=== PATIENT | male | born 1935 | race Caucasian/White ===

== ENCOUNTER 2017-01-31 07:09 | Day surgery (SDC) | payer MEDICARE, MEDICAID ==
[~2017-01-31 07:09] MED LIST: Lactated Ringers 1,000 ML IV SCH; Lidocaine 1% 4 ML ONE; Lidocaine 1%/Sod Bicarbonate in NS 8.4% 1 ML Syringe PRN; Propofol 200 MG/20 ML SDV ONE; Sodium Chloride 0.9% 10 ML Syringe FLUSH PRN; fentaNYL 100 MCG/2 ML SDV ONE
--- NOTE | 2017-01-31 07:39 | PCM.PREANE ---
Preanesthetic Assessment - Anesthesia/Transfusion/Family Hx Anesthesia History: Prior Anesthesia Without Reaction Family History of Anesthesia Reaction: No - Review of Systems General: No Symptoms Pulmonary: No Symptoms Cardiovascular: No Symptoms Gastrointestinal: No Symptoms Neurological: No Symptoms Other: Reports: None - Physical Assessment NPO Status Date: 01/30/17 NPO Status Time: 21:30 Pulse: 60 O2 Sat by Pulse Oximetry: 94 Respiratory Rate: 18 Blood Pressure: 137/54 Temperature: 36.6 C Weight: 102 kg ASA Class: 3 Mental Status: Alert & Oriented x3 Dentition: Reports: Dentures (upper and lower) Thyro-Mental Finger Breadths: 2 Mouth Opening Finger Breadths: 3 ROM/Head Extension: Full Lungs: Clear to Auscultation, Normal Respiratory Effort Cardiovascular: Regular Rate, Regular Rhythm - Imaging/EKG Impressions: SR on 07/2015 - Allergies Allergies/Adverse Reactions: Allergies Allergy/AdvReac Type Severity Reaction Status Date / Time hayfever Allergy allergic Uncoded 01/30/17 10:48 rhinitis - Acknowledgements Anesthesia Type Planned: MAC Pt an Appropriate Candidate for the Planned Anesthesia: Yes Alternatives and Risks of Anesthesia Discussed w Pt/Guardian: Yes Pt/Guardian Understands and Agrees with Anesthesia Plan: Yes PreAnesthesia Questionnaire HEENT History: Reports: Hard of Hearing, Other (See Below) Other HEENT History: dentures, glasses Cardiovascular History: Reports: Hypertension Respiratory History: Reports: Other (See Below) Other Respiratory History: lung resection of left lower lobe Gastrointestinal History: Reports: GERD, Other (See Below) Other Gastrointestinal History: mcmillan's, lily fundiplication, perforated ulcer Genitourinary History: Reports: None CASE COORDINATOR History: Reports: None Musculoskeletal History: Reports: Other (See Below) Other Musculoskeletal History: R hand 2nd finger ampuation, L knee ligament tear and repair Neurological History: Reports: None Psychiatric History: Reports: None Endocrine/Metabolic History: Reports: None Hematologic History: Reports: None Immunologic History: Reports: None Oncologic (Cancer) History: Reports: Lung Dermatologic History: Reports: None - Past Surgical History Head Surgeries/Procedures: Reports: None HEENT Surgical History: Reports: Tonsillectomy GI Surgical History: Reports: Colonoscopy, EGD, Lily Fundoplication Female Surgical History: Reports: None Neurological Surgical History: Reports: Other (See Below) Other Neurological Surgeries/Procedures: crainiotomy for removal of blood clot behind eye Dermatological Surgical History: Reports: None - SUBSTANCE USE Smoking Status *Q: Former Smoker Recreational Drug Use History: No - HOME MEDS Home Medications: Home Meds Aspirin 81 mg PO DAILY 01/30/17 [History] Calcium Carbonate [Tums] 500 mg PO BEDTIME 01/30/17 [History] Cyanocobalamin (Vitamin B-12) [Vitamin B-12] 1,000 mcg PO DAILY 01/30/17 [ History] Dutasteride [Avodart] 0.5 mg PO DAILY 01/30/17 [History] Esomeprazole Magnesium [Nexium] 40 mg PO BID 01/30/17 [History] Famotidine [Take Home: Famotidine 20 MG, 3 Tab Pack] 40 mg PO BEDTIME 01/30/17 [ History] Fluticasone Propionate [Flonase] 1 puff INH BID 01/30/17 [History] Magnesium Hydroxide [Milk of Magnesia] 30 ml PO DAILY PRN 01/30/17 [History] Metoclopramide HCl 5 mg PO DAILY 01/30/17 [History] Metoprolol Succinate 12.5 mg PO BID 01/30/17 [History] Salmeterol Xinafoate [Serevent Diskus] 1 puff INH BID 01/30/17 [History] Tamsulosin [Flomax] 0.4 mg PO DAILY 01/30/17 [History] levETIRAcetam [Levetiracetam] 1,000 mg PO DAILY 01/30/17 [History] - CURRENT (IN HOUSE) MEDS Current Meds: Current Medications Lactated Ringer's (Ringers, Lactated) 1,000 mls @ 125 mls/hr IV ASDIRECTED MALENA Stop: 01/31/17 23:00 Lidocaine/Sodium Bicarbonate (Buffered Lidocaine 1% In Ns 8.4%) 0.25 ml .XX ONETIME PRN PRN Reason: Prior to IV Start Stop: 01/31/17 18:00 Sodium Chloride (Saline Flush) 10 ml FLUSH ASDIRECTED PRN PRN Reason: Keep Vein Open Stop: 01/31/17 18:00 Discontinued Medications Fentanyl (Sublimaze) Confirm Administered Dose 100 mcg .ROUTE .STK-MED ONE Stop: 01/31/17 07:05 Lidocaine HCl (Xylocaine-Mpf 1%) Confirm Administered Dose 4 mls @ as directed .ROUTE .STK-MED ONE Stop: 01/31/17 07:05 Propofol (Diprivan 20 Ml) Confirm Administered Dose 200 mg .ROUTE .STK-MED ONE Stop: 01/31/17 07:05 Propofol (Diprivan 20 Ml) Confirm Administered Dose 200 mg .ROUTE .STK-MED ONE Stop: 01/31/17 07:06
--- NOTE | 2017-01-31 08:30 | PCM.OPNOTE ---
- General Post-Op/Procedure Note Date of Surgery/Procedure: 01/31/17 Operative Procedure(s): EGD with bx Pre Op Diagnosis: GERD hx of barretts Post-Op Diagnosis: Same Anesthesia Technique: MAC Primary Surgeon: Luis Miguel Sebastian EBL in mLs: 0 Complications: None Condition: Good
--- NOTE | 2017-01-31 08:32 | PCM48HPAN ---
Post Anesthesia Note - EVALUATION WITHIN 48HRS OF ANESTHETIC Vital Signs in Normal Range: Yes Patient Participated in Evaluation: Yes Respiratory Function Stable: Yes Airway Patent: Yes Cardiovascular Function Stable: Yes Hydration Status Stable: Yes Pain Control Satisfactory: Yes Nausea and Vomiting Control Satisfactory: Yes Mental Status Recovered: Yes
[2017-01-31 09:50] VITALS: BP 121/66
--- NOTE | 2017-01-31 12:00 | OR ---
DATE OF OPERATION: 01/31/2017 SURGEON: Luis Miguel Sebastian MD PREOPERATIVE DIAGNOSIS: History of Rabago's gastroesophageal reflux disease, status post Joanne fundoplication. POSTOPERATIVE DIAGNOSIS: History of Rabago's gastroesophageal reflux disease, status post Joanne fundoplication. OPERATION PERFORMED: EGD with biopsy. ANESTHESIA: Done under IV sedation. FINDINGS: Presence of a Joanne, it seems to have slipped slightly and is quite patulous, and the hiatus is widely open with incompetence. The GE junction does not show any evidence of Rabago's and was located at 40 cm, and the Joanne is just below this. The second portion of the duodenum, duodenal bulb, pyloric channel, antrum, body and cardia of the stomach and fundus, and cardia does not show any acute pathology. Balance of the esophagus was free of any disease. DESCRIPTION OF PROCEDURE: The patient was taken to the operating room, placed in a supine position, connected to monitoring equipment, and given IV sedation. He was placed in left lateral position. Bite block was inserted. Video Olympus gastroscope was placed in the posterior oropharynx and under direct vision, threaded past the cricopharyngeus, and down the esophagus. It was then advanced into the stomach. The stomach was insufflated, and the scope passed through the pylorus to the second portion of the duodenum. It was then slowly withdrawn showing normal second portion of the duodenum, duodenal bulb, pyloric channel. Antrum, body and cardia of the stomach were unremarkable. Fundus was viewed with J-maneuver. Biopsy of the antrum was taken and then J-maneuver was performed showing incompetence of the fundoplication, which was just below the GE junction, which was located at 40 cm. The scope was withdrawn to the GE junction and no evidence of Rabago's was identified, and GE junction was biopsied. Rest of the esophagus viewed as the scope was withdrawn was unremarkable. The patient tolerated the procedure and was sent to recovery room in a stable condition. He will be followed up with Dr. Martinez. ESTIMATED BLOOD LOSS: MMODAL /[id number]
== END 2017-01-31 09:30 | disposition home or self-care (01) ==
LOC: JD.SDS 07:09
PROVIDERS: ATTEND Surgery
DX: K29.50 Unspecified chronic gastritis without bleeding (principal); I10 Essential (primary) hypertension; Z91.09 Other allergy status, other than to drugs and biological substances; Z98.890 Other specified postprocedural states; Z79.82 Long term (current) use of aspirin; Z79.899 Other long term (current) drug therapy; Z87.891 Personal history of nicotine dependence
CPT/HCPCS: 43239; J3010; J7120; 00740; 88305; J2704

== ENCOUNTER 2017-06-24 14:01 | Inpatient (IN) | payer MEDICARE, MEDICAID ==
[2017-06-24] MEDS ORDERED: Sodium Chloride 0.9% 10 ML Syringe FLUSH PRN (14:41)
--- NOTE | 2017-06-24 14:59 | EDM.PDOC ---
ED HPI GENERAL MEDICAL PROBLEM - General Chief Complaint: Respiratory Problem Stated Complaint: RESPIRATORY ISSUES Time Seen by Provider: 06/24/17 14:26 Source of Information: Reports: Patient, Family () History Limitations: Reports: No Limitations - History of Present Illness INITIAL COMMENTS - FREE TEXT/NARRATIVE: 82-year-old male is sent over from the [facility]in [facility] for evaluation and treatment of hypoxia. Reportedly the patient had low oxygen sats in the 80s in the clinic. Per nursing report when he arrived here he was 85 on room air. After resting in the bed his oxygen improved to 90% on room air. The patient reports the last 3 weeks he has been ill with cough and cold symptoms. Reports sinus congestion, productive cough and malaise. He has not had any fevers, nausea or diarrhea. He reports he does not have much of an appetite and has lost approximately 5-6 pounds over the last week due to his decreased appetite. Additionally, he reports that he has been experiencing worsening dyspnea on exertion. He is also appreciated worsening edema to the bilateral lower legs. Reports orthopnea. Patient also reports that he feels that he is bloated. No diarrhea. He still passes gas like normal. He has had previous abdominal surgeries. Past medical history is significant for seizures. He currently sees a neurologist and is on Keppra for his seizures. He has not had one in several years. Patient reports that he was previously on he water pill but was taken off approximately a month to month and a half ago by his neurologist is concerned it was interacting with his other medications. History of lung cancer. Reports Left lower lobe lobectomy. Reports he had an influenza vaccine this season. PCP is Dr. Martinez. Duration: Week(s): (3) - Related Data Allergies Allergy/AdvReac Type Severity Reaction Status Date / Time No Known Allergies Allergy Verified 06/24/17 18:48 Home Meds: Home Meds Aspirin 81 mg PO DAILY 01/30/17 [History] Calcium Carbonate [Tums] 500 mg PO BEDTIME 01/30/17 [History] Cyanocobalamin (Vitamin B-12) [Vitamin B-12] 1,000 mcg PO DAILY 01/30/17 [ History] Dutasteride [Avodart] 0.5 mg PO DAILY 01/30/17 [History] Esomeprazole Magnesium [Nexium] 40 mg PO BID 01/30/17 [History] Famotidine [Take Home: Famotidine 20 MG, 3 Tab Pack] 40 mg PO BEDTIME 01/30/17 [ History] Fluticasone Propionate [Flonase] 1 puff INH BID 01/30/17 [History] Magnesium Hydroxide [Milk of Magnesia] 30 ml PO DAILY PRN 01/30/17 [History] Metoprolol Succinate 12.5 mg PO BID 01/30/17 [History] Salmeterol Xinafoate [Serevent Diskus] 1 puff INH BID 01/30/17 [History] Tamsulosin [Flomax] 0.4 mg PO DAILY 01/30/17 [History] levETIRAcetam [Levetiracetam] 1,000 mg PO DAILY 01/30/17 [History] Lycopene/Lut XT/Fruit Extracts [Fruit & Vegetable Daily Sftgel] 1 each PO DAILY 06/24/17 [History] Simethicone [Gas-X Ultra Strength] 1 tab PO DAILY 06/24/17 [History] Past Medical History HEENT History: Reports: Hard of Hearing, Impaired Vision, Other (See Below) Other HEENT History: dentures, glasses Cardiovascular History: Reports: Hypertension Respiratory History: Reports: Other (See Below) Other Respiratory History: lung resection of left lower lobe and lung cancer Gastrointestinal History: Reports: GERD, Other (See Below) Other Gastrointestinal History: mcmillan's, lily fundiplication, perforated ulcer Genitourinary History: Reports: None PE ELECTRICAL ENGINEER History: Reports: None Musculoskeletal History: Reports: Other (See Below) Other Musculoskeletal History: R hand 2nd finger ampuation, L knee ligament tear and repair Neurological History: Reports: None Psychiatric History: Reports: None Endocrine/Metabolic History: Reports: None Hematologic History: Reports: None Immunologic History: Reports: None Oncologic (Cancer) History: Reports: Lung Dermatologic History: Reports: None - Past Surgical History Head Surgeries/Procedures: Reports: None HEENT Surgical History: Reports: Tonsillectomy GI Surgical History: Reports: Colonoscopy, EGD, Lily Fundoplication Neurological Surgical History: Reports: Other (See Below) Other Neurological Surgeries/Procedures: crainiotomy for removal of blood clot behind eye Social & Family History - Family History Family Medical History: Noncontributory - Tobacco Use Smoking Status *Q: Former Smoker Used Tobacco, but Quit: Yes Month Tobacco Last Used: 2007 - Caffeine Use Caffeine Use: Reports: None - Recreational Drug Use Recreational Drug Use: No Drug Use in Last 12 Months: No ED ROS GENERAL - Review of Systems Review Of Systems: See Below Constitutional: Reports: Malaise, Weight Loss (5-6 lbs over the last week). Denies: Fever HEENT: Denies: Ear Pain, Throat Pain Respiratory: Reports: Cough, Sputum Cardiovascular: Reports: Dyspnea on Exertion, Edema, Orthopnea. Denies: Chest Pain GI/Abdominal: Reports: Flatus, Other (reports bloating). Denies: Abdominal Pain , Nausea, Vomiting Neurological: Denies: Seizure ED EXAM, GENERAL - Physical Exam Exam: See Below Exam Limited By: No Limitations General Appearance: Alert, WD/WN, No Apparent Distress Eye Exam: Bilateral Eye: Normal Inspection Ears: Normal External Exam, Normal Canal, Hearing Grossly Normal, Normal TMs Nose: Normal Inspection Throat/Mouth: Normal Inspection, Normal Lips, Normal Voice, No Airway Compromise Neck: Normal Inspection Respiratory/Chest: No Respiratory Distress, Rhonchi (right lower lobe), Wheezing (expiratory) Cardiovascular: Normal Peripheral Pulses, Regular Rate, Rhythm, No Murmur GI/Abdominal: Normal Bowel Sounds, Soft, Non-Tender Neurological: Alert, Oriented, Normal Cognition Psychiatric: Normal Affect, Normal Mood Skin Exam: Warm, Dry, Normal Color EKG INTERPRETATION EKG Date: 06/24/17 Time: 15:10 Rhythm: NSR Rate (Beats/Min): 70 [place]: RAD-Right [place] Deviation P-Wave: Present QRS: Normal ST-T: Normal QT: Normal EKG Interpretation Comments: NSR at 70 bpm. No ischemic changes. Right axis deviation. Questionable RVH. Reviewed by myself and Dr. Santana. Course - Vital Signs Last Recorded V/S: Last Vital Signs Temp 36.7 C 06/24/17 17:00 Pulse 76 06/24/17 20:02 Resp 20 06/24/17 17:00 BP 142/75 H 06/24/17 20:02 Pulse Ox 94 L 06/24/17 17:05 - Orders/Labs/Meds Orders: Active Orders 24 hr Category Date Time Status Patient Status [ADT] Routine ADT 06/24/17 16:53 Active Oxygen Therapy [RC] ASDIRECTED Care 06/24/17 14:41 Active Peripheral IV Care [RC] Q2HR Care 06/24/17 14:42 Active CULTURE BLOOD [BC] Stat Lab 06/24/17 15:45 Received CULTURE BLOOD [BC] Stat Lab 06/24/17 15:55 Received CULTURE URINE [RM] Stat Lab 06/24/17 15:35 Received Sodium Chloride 0.9% [Saline Flush] Med 06/24/17 14:41 Active 10 ml FLUSH ASDIRECTED PRN Blood Culture x2 Reflex Set [OM.PC] Stat Oth 06/24/17 14:43 Ordered Peripheral IV Insertion Adult [OM.PC] Routine Oth 06/24/17 14:41 Ordered Medication Orders Albuterol (Proventil Neb Soln) 2.5 mg NEB Q4HRRT PRN PRN Reason: Shortness of Breath Albuterol/Ipratropium (Duoneb 3.0-0.5 Mg/3 Ml) 3 ml NEB QID PRN PRN Reason: Shortness of Breath Aspirin (Halfprin) 81 mg PO DAILY [facility] Calcium Carbonate/Glycine (Tums) 500 mg PO BEDTIME [facility] Last Admin: 06/24/17 20:02 Dose: 500 mg Famotidine (Pepcid) 40 mg PO BEDTIME [facility] Last Admin: 06/24/17 20:02 Dose: 40 mg Finasteride (Proscar) 5 mg PO DAILY [facility] Azithromycin 500 mg/ Sodium (Chloride) 250 mls @ 250 mls/hr IV Q24H [facility] Ceftriaxone Sodium 2 gm/ (Sodium Chloride) 100 mls @ 200 mls/hr IV Q24H [facility] Levetiracetam (Keppra) 1,000 mg PO DAILY [facility] Magnesium Hydroxide (Milk Of Magnesia) 30 ml PO DAILY PRN PRN Reason: Constipation Metoprolol Succinate (Toprol Xl) 12.5 mg PO BID [facility] Last Admin: 06/24/17 20:02 Dose: 12.5 mg Non-Formulary Medication (Fluticasone Propionate) 1 puff INH BID [facility] Non-Formulary Medication (Salmeterol Xinafoate) 1 puff INH BID [facility] Pantoprazole Sodium (Protonix) 40 mg PO BID [facility] Last Admin: 06/24/17 20:02 Dose: 40 mg Sodium Chloride (Saline Flush) 10 ml FLUSH ASDIRECTED PRN PRN Reason: Keep Vein Open Last Admin: 06/24/17 15:25 Dose: 10 ml Tamsulosin HCl (Flomax) 0.4 mg PO DAILY [facility] Labs: Laboratory Tests 06/24/17 06/24/17 06/24/17 Range/Units 15:10 15:10 15:35 WBC 5.77 (4.23-9.07) K/mm3 RBC 4.76 (4.63-6.08) M/mm3 Hgb 12.8 L (13.7-17.5) gm/L Hct 39.7 L (40.1-51.0) % MCV 83.4 (79.0-92.2) fl MCH 26.9 (25.7-32.2) pg MCHC 32.2 (32.2-35.5) g/dl RDW Std Deviation 43.9 (35.1-43.9) fL Plt Count 215 (163-337) K/mm3 MPV 9.0 L (9.4-12.3) fl Neutrophils % (Manual) 56 (40-60) % Band Neutrophils % 0 (0-10) % Lymphocytes % (Manual) 36 (20-40) % Atypical Lymphs % 0 % Monocytes % (Manual) 6 (2-10) % Eosinophils % (Manual) 2 (0.8-7.0) % Basophils % (Manual) 0 L (0.2-1.2) Platelet Estimate Adequate Hypochromasia 1+ slight Anisocytosis 1+ slight Macrocytosis 1+ slight Ovalocytes 1+ slight RBC Morph Comment Not Reportable Sodium 135 L (136-145) mEq/L Potassium 4.4 (3.5-5.1) mEq/L Chloride 100 (98-107) mEq/L Carbon Dioxide 28 (21-32) mEq/L Anion Gap 11.4 (5-15) BUN 16 (7-18) mg/dL Creatinine 1.1 (0.7-1.3) mg/dL Est Cr Clr Drug Dosing 53.46 mL/min Estimated GFR (MDRD) > 60 (>60) mL/min BUN/Creatinine Ratio 14.5 (14-18) Glucose 98 (83-115) mg/dL Lactic Acid (0.4-2.0) mmol/L Calcium 8.7 (8.5-10.1) mg/dL Total Bilirubin 0.3 (0.2-1.0) mg/dL AST 14 L (15-37) U/L ALT 19 (16-63) U/L Alkaline Phosphatase 68 (46-116) U/L Troponin I < 0.017 (0.00-0.056) ng/mL C-Reactive Protein 0.5 (<1.0) mg/dL NT-Pro-B Natriuret Pep 162 (0-450) pg/mL Total Protein 7.1 (6.4-8.2) g/dl Albumin 3.0 L (3.4-5.0) g/dl Globulin 4.1 gm/dL Albumin/Globulin Ratio 0.7 L (1-2) Lipase 83 (73-393) U/L Urine Color Yellow (Yellow) Urine Appearance Clear (Clear) Urine pH 7.0 (5.0-8.0) Ur Specific [place] 1.020 (1.005-1.030) Urine Protein Negative (Negative) Urine Glucose (UA) Negative (Negative) Urine Ketones Negative (Negative) Urine Occult Blood Trace-lysed H (Negative) Urine Nitrite Negative (Negative) Urine Bilirubin Negative (Negative) Urine Urobilinogen 0.2 (0.2-1.0) Ur Leukocyte Esterase Negative (Negative) Urine RBC 5-10 H (0-5) /hpf Urine WBC 0-5 (0-5) /hpf Ur Epithelial Cells 0-5 (0-5) /hpf Urine Bacteria Few (FEW) /hpf Urine Mucus Not seen (FEW) /hpf 06/24/17 Range/Units 15:45 WBC (4.23-9.07) K/mm3 RBC (4.63-6.08) M/mm3 Hgb (13.7-17.5) gm/L Hct (40.1-51.0) % MCV (79.0-92.2) fl MCH (25.7-32.2) pg MCHC (32.2-35.5) g/dl RDW Std Deviation (35.1-43.9) fL Plt Count (163-337) K/mm3 MPV (9.4-12.3) fl Neutrophils % (Manual) (40-60) % Band Neutrophils % (0-10) % Lymphocytes % (Manual) (20-40) % Atypical Lymphs % % Monocytes % (Manual) (2-10) % Eosinophils % (Manual) (0.8-7.0) % Basophils % (Manual) (0.2-1.2) Platelet Estimate Hypochromasia Anisocytosis Macrocytosis Ovalocytes RBC Morph Comment Sodium (136-145) mEq/L Potassium (3.5-5.1) mEq/L Chloride (98-107) mEq/L Carbon Dioxide (21-32) mEq/L Anion Gap (5-15) BUN (7-18) mg/dL Creatinine (0.7-1.3) mg/dL Est Cr Clr Drug Dosing mL/min Estimated GFR (MDRD) (>60) mL/min BUN/Creatinine Ratio (14-18) Glucose (83-115) mg/dL Lactic Acid 1.3 (0.4-2.0) mmol/L Calcium (8.5-10.1) mg/dL Total Bilirubin (0.2-1.0) mg/dL AST (15-37) U/L ALT (16-63) U/L Alkaline Phosphatase (46-116) U/L Troponin I (0.00-0.056) ng/mL C-Reactive Protein (<1.0) mg/dL NT-Pro-B Natriuret Pep (0-450) pg/mL Total Protein (6.4-8.2) g/dl Albumin (3.4-5.0) g/dl Globulin gm/dL Albumin/Globulin Ratio (1-2) Lipase (73-393) U/L Urine Color (Yellow) Urine Appearance (Clear) Urine pH (5.0-8.0) Ur Specific [place] (1.005-1.030) Urine Protein (Negative) Urine Glucose (UA) (Negative) Urine Ketones (Negative) Urine Occult Blood (Negative) Urine Nitrite (Negative) Urine Bilirubin (Negative) Urine Urobilinogen (0.2-1.0) Ur Leukocyte Esterase (Negative) Urine RBC (0-5) /hpf Urine WBC (0-5) /hpf Ur Epithelial Cells (0-5) /hpf Urine Bacteria (FEW) /hpf Urine Mucus (FEW) /hpf Meds: Medications Generic Name Dose Route Start Last Admin Trade Name Freq PRN Reason Stop Dose Admin Albuterol 2.5 mg 06/24/17 18:08 Proventil Neb Soln NEB Q4HRRT PRN Shortness of Breath Albuterol/Ipratropium 3 ml 06/24/17 18:07 Duoneb 3.0-0.5 Mg/3 Ml NEB QID PRN Shortness of Breath Aspirin 81 mg 06/25/17 09:00 Halfprin PO DAILY [facility] Calcium Carbonate/Glycine 500 mg 06/24/17 21:00 06/24/17 20:02 Tums PO 500 mg BEDTIME [facility] Administration Famotidine 40 mg 06/24/17 21:00 06/24/17 20:02 Pepcid PO 40 mg BEDTIME [facility] Administration Finasteride 5 mg 06/25/17 09:00 Proscar PO DAILY [facility] Azithromycin 500 mg/ Sodium 250 mls @ 250 mls/hr 06/25/17 13:00 Chloride IV Q24H [facility] Ceftriaxone Sodium 2 gm/ 100 mls @ 200 mls/hr 06/25/17 09:00 Sodium Chloride IV Q24H [facility] Levetiracetam 1,000 mg 06/25/17 09:00 Keppra PO DAILY [facility] Magnesium Hydroxide 30 ml 06/24/17 17:55 Milk Of Magnesia PO DAILY PRN Constipation Metoprolol Succinate 12.5 mg 06/24/17 21:00 06/24/17 20:02 Toprol Xl PO 12.5 mg BID [facility] Administration Non-Formulary Medication 1 puff 06/24/17 21:00 Fluticasone Propionate INH BID [facility] Non-Formulary Medication 1 puff 06/24/17 21:00 Salmeterol Xinafoate INH BID [facility] Pantoprazole Sodium 40 mg 06/24/17 21:00 06/24/17 20:02 Protonix PO 40 mg BID [facility] Administration Sodium Chloride 10 ml 06/24/17 14:41 06/24/17 15:25 Saline Flush FLUSH 10 ml ASDIRECTED PRN Administration Keep Vein Open Tamsulosin HCl 0.4 mg 06/25/17 09:00 Flomax PO DAILY [facility] Discontinued Medications Generic Name Dose Route Start Last Admin Trade Name Freq PRN Reason Stop Dose Admin Albuterol/Ipratropium 3 ml 06/24/17 15:37 06/24/17 15:51 Duoneb 3.0-0.5 Mg/3 Ml NEB 06/24/17 15:38 3 ml ONETIME ONE Administration Ceftriaxone Sodium 2 gm/ 100 mls @ 200 mls/hr 06/24/17 16:10 06/24/17 16:18 Sodium Chloride IV 06/24/17 16:39 200 mls/hr ONETIME ONE Administration - Radiology Interpretation Free Text/Narrative:: Chest: Two views of the chest are obtained. Comparison: No prior study. Increased density is seen within the posterior right lung base having the appearance of pneumonia. Rib deformity is seen on the left side which appears chronic. Heart is shifted into the left chest. Pleural thickening is seen within the lateral left costophrenic angle which is likely chronic. Impression: 1. Previous left-sided surgery with residual findings as noted above. 2. Increased density within the posterior right lung base having the appearance of pneumonia. - Re-Assessments/Exams Free Text/Narrative Re-Assessment/Exam: 06/24/17 16:13 Influenza returned negative. I reviewed the labs, x-ray and EKG results with the patient. He did not know is any change after the DuoNeb. I placed him on about a liter and a half of oxygen via nasal cannula and he reports that he felt immediately improved. 06/24/15 16:[address] Jimenez, hospitalist environmental health specialist. She will come and evaluate the patient in the ER. Plan on admission. Departure - Departure Time of Disposition: 16:55 Disposition: Admitted As Inpatient 66 Condition: Fair Clinical Impression: Pneumonia, Lung cancer, Hypertension - Discharge Information - My Orders Last 24 Hours: My Active Orders 06/24/17 14:41 Oxygen Therapy [RC] ASDIRECTED Sodium Chloride 0.9% [Saline Flush] 10 ml FLUSH ASDIRECTED PRN Peripheral IV Insertion Adult [OM.PC] Routine 06/24/17 14:42 Peripheral IV Care [RC] Q2HR 06/24/17 14:43 Blood Culture x2 Reflex Set [OM.PC] Stat 06/24/17 15:35 CULTURE URINE [RM] Stat 06/24/17 15:45 CULTURE BLOOD [BC] Stat 06/24/17 15:55 CULTURE BLOOD [BC] Stat 06/24/17 16:53 Patient Status [ADT] Routine - Assessment/Plan Last 24 Hours: My Active Orders 06/24/17 14:41 Oxygen Therapy [RC] ASDIRECTED Sodium Chloride 0.9% [Saline Flush] 10 ml FLUSH ASDIRECTED PRN Peripheral IV Insertion Adult [OM.PC] Routine 06/24/17 14:42 Peripheral IV Care [RC] Q2HR 06/24/17 14:43 Blood Culture x2 Reflex Set [OM.PC] Stat 06/24/17 15:35 CULTURE URINE [RM] Stat 06/24/17 15:45 CULTURE BLOOD [BC] Stat 06/24/17 15:55 CULTURE BLOOD [BC] Stat 06/24/17 16:53 Patient Status [ADT] Routine
--- NOTE | 2017-06-24 15:24 | CR ---
Chest: Two views of the chest are obtained. Comparison: No prior study. Increased density is seen within the posterior right lung base having the appearance of pneumonia. Rib deformity is seen on the left side which appears chronic. Heart is shifted into the left chest. Pleural thickening is seen within the lateral left costophrenic angle which is likely chronic. Impression: 1. Previous left-sided surgery with residual findings as noted above. 2. Increased density within the posterior right lung base having the appearance of pneumonia. Diagnostic code #3
--- NOTE | 2017-06-24 15:26 | CR ---
Abdomen: Supine and upright views of the abdomen were obtained. Comparison: No prior abdominal x-ray, prior CT abdomen and pelvis study of 08/29/12. Degenerative change is seen within the spine. Scattered gas within small bowel and colon is seen which is felt to be within normal limits. Slight increased gas is noted within the stomach presumably due to swallowed air. Slight vascular calcification is noted. No free air is seen. Impression: 1. Slight increased gas within the stomach presumably due to swallowed air. 2. Other incidental findings as noted above. Diagnostic code #2
[2017-06-24] MEDS ORDERED: Albuterol/Ipratropium 3.0-0.5 MG/3 ML Neb Soln NEB ONE (15:37)
[2017-06-24] MEDS ORDERED: cefTRIAXone 2 GM in Sodium Chloride 0.9% 100 ML IV ONE (16:10)
[2017-06-24] MEDS ORDERED: Magnesium Hydroxide 400 MG/5 ML Susp 30 ML Cup PO PRN (17:55)
[2017-06-24] MEDS ORDERED: Albuterol/Ipratropium 3.0-0.5 MG/3 ML Neb Soln NEB PRN (18:07)
[2017-06-24] MEDS ORDERED: Albuterol 0.083% 2.5 MG/3 ML Neb Soln NEB PRN (18:08)
--- NOTE | 2017-06-24 18:16 | PCM.HP ---
H&P History of Present Illness - General Date of Service: 06/24/17 Admit Problem/Dx: Admission Diagnosis/Problem Admission Diagnosis/Problem Pneumonia Source of Information: Patient, Family, Provider History Limitations: Reports: No Limitations - History of Present Illness Initial Comments - Free Text/Narative: 82 year active male from home reports malaise, generalized weakness and cough with sputum. He was sent from his PCP's office where he was seen as a walk in appointment. He was hypoxic on room air in the 80s which improved to the 90s with rest. However he has required O2 via NC since presenting in the ED. He has reportedly lost at least 5 pounds recently, his appetite is markedly decreased. He is being admitted to [facility]. Onset of Symptoms: Reports: Gradual Symptom Onset Date: 06/03/17 Duration of Symptoms: Reports: Week(s):, Getting Worse Location: Reports: Chest, Generalized Severity: Moderate Improves with: Reports: Medication Worsens with: Reports: None Associated Symptoms: Reports: Chest Pain, cough w sputum - Related Data Allergies/Adverse Reactions: Allergies Allergy/AdvReac Type Severity Reaction Status Date / Time hayfever Allergy allergic Uncoded 06/24/17 14:16 rhinitis Home Medications: Home Meds Aspirin 81 mg PO DAILY 01/30/17 [History] Calcium Carbonate [Tums] 500 mg PO BEDTIME 01/30/17 [History] Cyanocobalamin (Vitamin B-12) [Vitamin B-12] 1,000 mcg PO DAILY 01/30/17 [ History] Dutasteride [Avodart] 0.5 mg PO DAILY 01/30/17 [History] Esomeprazole Magnesium [Nexium] 40 mg PO BID 01/30/17 [History] Famotidine [Take Home: Famotidine 20 MG, 3 Tab Pack] 40 mg PO BEDTIME 01/30/17 [ History] Fluticasone Propionate [Flonase] 1 puff INH BID 01/30/17 [History] Magnesium Hydroxide [Milk of Magnesia] 30 ml PO DAILY PRN 01/30/17 [History] Metoprolol Succinate 12.5 mg PO BID 01/30/17 [History] Salmeterol Xinafoate [Serevent Diskus] 1 puff INH BID 01/30/17 [History] Tamsulosin [Flomax] 0.4 mg PO DAILY 01/30/17 [History] levETIRAcetam [Levetiracetam] 1,000 mg PO DAILY 01/30/17 [History] Past Medical History HEENT History: Reports: Hard of Hearing, Impaired Vision, Other (See Below) Other HEENT History: dentures, glasses Cardiovascular History: Reports: Hypertension Respiratory History: Reports: Other (See Below) Other Respiratory History: lung resection of left lower lobe and lung cancer Gastrointestinal History: Reports: GERD, Other (See Below) Other Gastrointestinal History: mcmillan's, lily fundiplication, perforated ulcer Genitourinary History: Reports: None 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 Musculoskeletal History: Reports: Other (See Below) Other Musculoskeletal History: R hand 2nd finger ampuation, L knee ligament tear and repair Neurological History: Reports: None Psychiatric History: Reports: None Endocrine/Metabolic History: Reports: None Hematologic History: Reports: None Immunologic History: Reports: None Oncologic (Cancer) History: Reports: Lung Dermatologic History: Reports: None - Past Surgical History Head Surgeries/Procedures: Reports: None HEENT Surgical History: Reports: Tonsillectomy GI Surgical History: Reports: Colonoscopy, EGD, Lily Fundoplication Neurological Surgical History: Reports: Other (See Below) Other Neurological Surgeries/Procedures: crainiotomy for removal of blood clot behind eye Social & Family History - Family History Family Medical History: Noncontributory - Tobacco Use Smoking Status *Q: Former Smoker Used Tobacco, but Quit: Yes Month Tobacco Last Used: 2007 - Caffeine Use Caffeine Use: Reports: None - Recreational Drug Use Recreational Drug Use: No Drug Use in Last 12 Months: No H&P Review of Systems - Review of Systems: Review Of Systems: See Below General: Reports: Malaise, Weakness, Decreased Appetite HEENT: Reports: No Symptoms Pulmonary: Reports: Shortness of Breath Cardiovascular: Reports: No Symptoms Gastrointestinal: Reports: No Symptoms Genitourinary: Reports: No Symptoms Musculoskeletal: Reports: No Symptoms Skin: Reports: No Symptoms Psychiatric: Reports: No Symptoms Neurological: Reports: No Symptoms Hematologic/Lymphatic: Reports: No Symptoms Immunologic: Reports: No Symptoms Exam - Exam Exam: See Below - Vital Signs Vital Signs: Last Vital Signs Temp 36.7 C 06/24/17 17:00 Pulse 72 06/24/17 17:00 Resp 20 06/24/17 17:00 BP 156/85 H 06/24/17 17:00 Pulse Ox 94 L 06/24/17 17:05 Weight: 102.597 kg - Exam Quality Assessment: Supplemental Oxygen, DVT Prophylaxis General: Alert, Oriented, Cooperative HEENT: Conjunctiva Clear, EOMI, Nares Patent, Normal Nasal Septum, Pupils Equal , Pupils Reactive, PERRLA Neck: Trachea Midline Lungs: Normal Respiratory Effort, Decreased Breath Sounds Cardiovascular: Regular Rate, Regular Rhythm GI/Abdominal Exam: Normal Bowel Sounds, Soft, Non-Tender, No Organomegaly, No Distention (Male) Exam: Deferred Rectal (Males) Exam: Deferred Back Exam: Normal Inspection Extremities: Normal Inspection, Non-Tender Skin: Warm Neurological: Cranial Nerves Intact Neuro Extensive - Mental Status: Alert, Oriented x3, Normal Mood/Affect, Normal Cognition, Memory Intact - Patient Data Result Diagrams: 06/24/17 15:10 06/24/17 15:10 *Q Meaningful Use (ADM) - VTE *Q VTE Criteria *Q: - Stroke *Q Stroke Criteria *Q: - AMI *Q AMI Criteria *Q: - Problem List (1) Pneumonia SNOMED Code(s): 887460908 ICD Code: J18.9 - PNEUMONIA, UNSPECIFIED ORGANISM Status: Acute Current Visit: Yes (2) Lung cancer SNOMED Code(s): 489238744 ICD Code: C34.90 - MALIGNANT NEOPLASM OF UNSP PART OF UNSP BRONCHUS OR LUNG Status: Acute Current Visit: Yes (3) Hypertension SNOMED Code(s): 83090889 ICD Code: I10 - ESSENTIAL (PRIMARY) HYPERTENSION Status: Acute Current Visit: Yes (4) Seizures SNOMED Code(s): 26799598 ICD Code: R56.9 - UNSPECIFIED CONVULSIONS Status: Acute Current Visit: Yes Problem List Initiated/Reviewed/Updated: Yes Orders Last 24hrs: Active Orders 24 hr Category Date Time Status Activity as Tolerated [RC] .Routine Care 06/24/17 17:59 Active RT Aerosol Therapy [RC] ASDIRECTED Care 06/24/17 18:08 Active Vital Signs [RC] 09,15,21,03 Care 06/24/17 17:49 Active Regular Diet [DIET] Diet 06/24/17 Dinner Active BMP [BASIC METABOLIC PANEL,BMP] [CHEM] Routine Lab 06/25/17 05:00 Ordered CBC WITH AUTO DIFF [HEME] DAILY Lab 06/25/17 05:00 Ordered CBC WITH AUTO DIFF [HEME] DAILY Lab 06/26/17 05:00 Ordered CBC WITH AUTO DIFF [HEME] DAILY Lab 06/27/17 05:00 Ordered CBC WITH AUTO DIFF [HEME] DAILY Lab 06/28/17 05:00 Ordered CRP [C-REACTIVE PROTEIN] [CHEM] Routine Lab 06/25/17 05:00 Ordered MAGNESIUM [CHEM] DAILY Lab 06/25/17 05:00 Ordered MAGNESIUM [CHEM] DAILY Lab 06/26/17 05:00 Ordered MAGNESIUM [CHEM] DAILY Lab 06/27/17 05:00 Ordered MAGNESIUM [CHEM] DAILY Lab 06/28/17 05:00 Ordered MYCOPLASMA PNEUMONIAE IGM AB [CHEM] Routine Lab 06/25/17 05:00 Ordered RESPIRATORY PANEL BY PCR [MREF] Routine Lab 06/24/17 18:06 Uncollected STREP PNEUMONIAE ANTIGEN [MREF] Routine Lab 06/24/17 18:06 Ordered Albuterol [Proventil Neb Soln] Med 06/24/17 18:08 Ordered 2.5 mg NEB Q4HRRT PRN Albuterol/Ipratropium [DuoNeb 3.0-0.5 MG/3 ML] Med 06/24/17 18:07 Ordered 3 ml NEB QID PRN Aspirin [Halfprin] Med 06/25/17 09:00 Active 81 mg PO DAILY Azithromycin [Zithromax] 500 mg Med 06/25/17 13:00 Active Sodium Chloride 0.9% [Normal Saline] 250 ml IV Q24H Calcium Carbonate [Tums] Med 06/24/17 21:00 Active 500 mg PO BEDTIME Dutasteride Med 06/25/17 09:00 Ordered 0.5 mg PO DAILY Famotidine [Pepcid] Med 06/24/17 21:00 Active 40 mg PO BEDTIME Fluticasone Propionate Med 06/24/17 21:00 Pending 1 puff INH BID Magnesium Hydroxide [Milk of Magnesia] Med 06/24/17 17:55 Active 30 ml PO DAILY PRN Metoprolol Succinate [Toprol XL] Med 06/24/17 21:00 Active 12.5 mg PO BID Pantoprazole [ProTONIX] Med 06/24/17 21:00 Active 40 mg PO BID Salmeterol Xinafoate Med 06/24/17 21:00 Ordered 1 puff INH BID Tamsulosin [Flomax] Med 06/25/17 09:00 Active 0.4 mg PO DAILY cefTRIAXone [Rocephin] 2 gm Med 06/25/17 09:00 Active Sodium Chloride 0.9% [Normal Saline] 100 ml IV Q24H levETIRAcetam [Keppra] Med 06/25/17 09:00 Active 1,000 mg PO DAILY Medication Orders Aspirin (Halfprin) 81 mg PO DAILY [facility] Calcium Carbonate/Glycine (Tums) 500 mg PO BEDTIME [facility] Famotidine (Pepcid) 40 mg PO BEDTIME [facility] Azithromycin 500 mg/ Sodium (Chloride) 250 mls @ 250 mls/hr IV Q24H [facility] Ceftriaxone Sodium 2 gm/ (Sodium Chloride) 100 mls @ 200 mls/hr IV Q24H [facility] Levetiracetam (Keppra) 1,000 mg PO DAILY [facility] Magnesium Hydroxide (Milk Of Magnesia) 30 ml PO DAILY PRN PRN Reason: Constipation Metoprolol Succinate (Toprol Xl) 12.5 mg PO BID [facility] Non-Formulary Medication (Dutasteride) 0.5 mg PO DAILY [facility] Non-Formulary Medication (Fluticasone Propionate) 1 puff INH BID [facility] Non-Formulary Medication (Salmeterol Xinafoate) 1 puff INH BID [facility] Pantoprazole Sodium (Protonix) 40 mg PO BID [facility] Sodium Chloride (Saline Flush) 10 ml FLUSH ASDIRECTED PRN PRN Reason: Keep Vein Open Last Admin: 06/24/17 15:25 Dose: 10 ml Tamsulosin HCl (Flomax) 0.4 mg PO DAILY [facility] Assessment/Plan Comment:: Impression: CAP with hypoxia History of lung resection; History of Seizures Chronic HTN GERD Former tobacco History of Lung Ca Plan: IVF Zithromax/Rocephin Infectious work up Nebs scheduled/prn Daily Labs Home meds DVT/GI prophylaxis
[2017-06-24] MEDS: Pantoprazole 40 MG Tab.CR PO SCH (20:02)
[2017-06-24] MEDS: Calcium Carbonate 500 MG Tab.Chew PO SCH (20:02)
[2017-06-24] MEDS: Metoprolol Succinate 25 MG Tab.ER PO SCH (20:02)
[2017-06-24] MEDS ORDERED: Famotidine 20 MG Tab PO SCH (21:00)
[2017-06-24] MEDS ORDERED: SALMETEROL XINAFOATE INH SCH (21:00)
[2017-06-25] MEDS: Metoprolol Succinate 25 MG Tab.ER PO SCH ×2 (08:33→20:13)
[2017-06-25] MEDS: Finasteride 5 MG Tab PO SCH (08:33)
[2017-06-25] MEDS: Pantoprazole 40 MG Tab.CR PO SCH ×2 (08:33→20:14)
[2017-06-25] MEDS: levETIRAcetam 500 MG Tab PO SCH (08:33)
[2017-06-25] MEDS: Aspirin 81 MG Tab.EC PO SCH (08:33)
[2017-06-25] MEDS: Tamsulosin 0.4 MG Cap.ER PO SCH (08:33)
--- NOTE | 2017-06-25 12:18 | PCM.PN ---
- General Info Date of Service: 06/25/17 Admission Dx/Problem (Free Text): Admission Diagnosis/Problem Admission Diagnosis/Problem Pneumonia Subjective Update: Follow Up Functional Status: Reports: Pain Controlled, Tolerating Diet, Ambulating, Urinating, New Symptoms (chills) - Review of Systems General: Denies: Fever, Weakness, Fatigue, Malaise, Chills HEENT: Reports: No Symptoms. Denies: Contact Lenses Pulmonary: Denies: Shortness of Breath, Cough, Wheezing Cardiovascular: Denies: Chest Pain Gastrointestinal: Denies: Abdominal Pain, Nausea, Vomiting Genitourinary: Reports: No Symptoms Musculoskeletal: Reports: No Symptoms Skin: Denies: Cyanosis, Mottled, Pallor, Diaphoresis Neurological: Denies: Confusion, Difficulty Walking, Weakness, Gait Disturbance Psychiatric: Denies: Depression, Anxiety, Agitation, Hallucinations Systems Review Comment:: No overnight or acute issues. He slept pretty good. He has no new complaints. He is afebrile w/o leukocytosis. - Patient Data Vitals - Most Recent: Last Vital Signs Temp 36.7 C 06/25/17 09:00 Pulse 74 06/25/17 08:33 Resp 16 06/25/17 09:00 BP 152/82 H 06/25/17 09:00 Pulse Ox 95 06/25/17 09:00 Weight - Most Recent: 102.597 kg I&O - Last 24 Hours: Intake & Output 06/24/17 06/25/17 06/25/17 22:59 06:59 14:59 Intake Total 300 900 300 Output Total 900 Balance 300 0 300 Lab Results Last 24 Hours: Laboratory Results - last 24 hr 06/25/17 06/25/17 Range/Units 05:40 05:40 WBC 5.85 (4.23-9.07) K/mm3 RBC 4.83 (4.63-6.08) M/mm3 Hgb 13.3 L (13.7-17.5) gm/L Hct 40.3 (40.1-51.0) % MCV 83.4 (79.0-92.2) fl MCH 27.5 (25.7-32.2) pg MCHC 33.0 (32.2-35.5) g/dl RDW Std Deviation 45.1 H (35.1-43.9) fL Plt Count 206 (163-337) K/mm3 MPV 9.7 (9.4-12.3) fl Neut % (Auto) 60.7 (34.0-67.9) % Lymph % (Auto) 22.6 (21.8-53.1) % [place] % (Auto) 14.4 H (5.3-12.2) % Eos % (Auto) 1.9 (0.8-7.0) Baso % (Auto) 0.2 (0.1-1.2) % Neut # (Auto) 3.56 (1.78-5.38) K/mm3 Lymph # (Auto) 1.32 (1.32-3.57) K/mm3 [place] # (Auto) 0.84 H (0.30-0.82) K/mm3 Eos # (Auto) 0.11 (0.04-0.54) K/mm3 Baso # (Auto) 0.01 (0.01-0.08) K/mm3 Sodium 135 L (136-145) mEq/L Potassium 4.1 (3.5-5.1) mEq/L Chloride 99 (98-107) mEq/L Carbon Dioxide 28 (21-32) mEq/L Anion Gap 12.1 (5-15) BUN 13 (7-18) mg/dL Creatinine 1.1 (0.7-1.3) mg/dL Est Cr Clr Drug Dosing 53.46 mL/min Estimated GFR (MDRD) > 60 (>60) mL/min BUN/Creatinine Ratio 11.8 L (14-18) Glucose 85 (83-115) mg/dL Calcium 8.9 (8.5-10.1) mg/dL Magnesium 1.8 (1.8-2.4) mg/dl C-Reactive Protein 0.8 (<1.0) mg/dL Mycoplasma pneumon IgM Negative (NEGATIVE) Med Orders - Current: Current Medications Albuterol (Proventil Neb Soln) 2.5 mg NEB Q4HRRT PRN PRN Reason: Shortness of Breath Albuterol/Ipratropium (Duoneb 3.0-0.5 Mg/3 Ml) 3 ml NEB Q6HRRT [facility] Aspirin (Halfprin) 81 mg PO DAILY [facility] Last Admin: 06/25/17 08:33 Dose: 81 mg Calcium Carbonate/Glycine (Tums) 500 mg PO BEDTIME [facility] Last Admin: 06/24/17 20:02 Dose: 500 mg Finasteride (Proscar) 5 mg PO DAILY [facility] Last Admin: 06/25/17 08:33 Dose: 5 mg Flunisolide (Nasalide Nasal [place]) 0 ml LASHA Q12H [facility] Last Admin: 06/25/17 08:31 Dose: 2 spray Azithromycin 500 mg/ Sodium (Chloride) 250 mls @ 250 mls/hr IV Q24H [facility] Ceftriaxone Sodium 2 gm/ (Dextrose/Water) 100 mls @ 200 mls/hr IV Q24H [facility] Levetiracetam (Keppra) 1,000 mg PO DAILY [facility] Last Admin: 06/25/17 08:33 Dose: 1,000 mg Magnesium Hydroxide (Milk Of Magnesia) 30 ml PO DAILY PRN PRN Reason: Constipation Metoprolol Succinate (Toprol Xl) 12.5 mg PO BID [facility] Last Admin: 06/25/17 08:33 Dose: 12.5 mg Pantoprazole Sodium (Protonix) 40 mg PO BID [facility] Last Admin: 06/25/17 08:33 Dose: 40 mg Sodium Chloride (Saline Flush) 10 ml FLUSH ASDIRECTED PRN PRN Reason: Keep Vein Open Last Admin: 06/24/17 15:25 Dose: 10 ml Tamsulosin HCl (Flomax) 0.4 mg PO DAILY [facility] Last Admin: 06/25/17 08:33 Dose: 0.4 mg Discontinued Medications Albuterol/Ipratropium (Duoneb 3.0-0.5 Mg/3 Ml) 3 ml NEB ONETIME ONE Stop: 06/24/17 15:38 Last Admin: 06/24/17 15:51 Dose: 3 ml Albuterol/Ipratropium (Duoneb 3.0-0.5 Mg/3 Ml) 3 ml NEB QID PRN PRN Reason: Shortness of Breath Famotidine (Pepcid) 40 mg PO BEDTIME [facility] Last Admin: 06/24/17 20:02 Dose: 40 mg Ceftriaxone Sodium 2 gm/ (Sodium Chloride) 100 mls @ 200 mls/hr IV ONETIME ONE Stop: 06/24/17 16:39 Last Admin: 06/24/17 16:18 Dose: 200 mls/hr Non-Formulary Medication (Salmeterol Xinafoate) 1 puff INH BID [facility] - Exam Quality Assessment: Supplemental Oxygen General: Alert, Oriented, Cooperative, No Acute Distress HEENT: Pupils Equal, Pupils Reactive, EOMI, Mucous Membr. Moist/[place] Neck: Supple, Trachea Midline Lungs: Normal Respiratory Effort, Decreased Breath Sounds Cardiovascular: Regular Rate, Regular Rhythm GI/Abdominal Exam: Normal Bowel Sounds, Soft, Non-Tender, No Organomegaly, No Distention, No Abnormal Bruit, No Mass (Male) Exam: Deferred Back Exam: Normal Inspection, Decreased Range of Motion Extremities: Normal Inspection, Normal Range of Motion, Non-Tender, No Pedal Edema, Normal Capillary Refill Peripheral Pulses: 2+: Dorsalis Pedis (L), Dorsalis Pedis (R) Skin: Warm, Dry, Intact Neurological: No New Focal Deficit Psy/Mental Status: Alert, Normal Affect, Normal Mood - Problem List Review Problem List Initiated/Reviewed/Updated: Yes - Plan Plan:: Impression: Acute: CAP with Hypoxia, Improved - Risk Factor: History of lung resection - On IV Azithromycin/Rocephin Daily - Afebrile with normal WBC and CRP - Mycoplasma Ag and Blood Culture Negative - Continue IS use as directed - CXR in AM Chronic HTN GERD Former tobacco History of Lung Ca History of Seizures Plan: He is clinically stable Continue current treatment Routine Daily Labs Ambulate as tolerated DVT/GI prophylaxis: SCDs and PPIs Code Status:1
[2017-06-25] MEDS: Azithromycin 500 MG in Sodium Chloride 0.9% 250 ML IV SCH (12:58)
[2017-06-25] MEDS: Albuterol/Ipratropium 3.0-0.5 MG/3 ML Neb Soln NEB SCH ×2 (15:31→21:03)
[2017-06-25] MEDS: Calcium Carbonate 500 MG Tab.Chew PO SCH (20:13)
[2017-06-26] MEDS: Albuterol/Ipratropium 3.0-0.5 MG/3 ML Neb Soln NEB SCH ×4 (03:19→21:12)
[2017-06-26] MEDS: Pantoprazole 40 MG Tab.CR PO SCH ×2 (06:00→17:06)
--- NOTE | 2017-06-26 08:12 | PCM.PN ---
- General Info Date of Service: 06/26/17 Admission Dx/Problem (Free Text): Admission Diagnosis/Problem Admission Diagnosis/Problem Pneumonia Patient doing well this morning. Denies c/o pain, no SOB, cough is improved. Afebrile overnight. 94% on 2L/NC--wean today if able. Has been up ambulatory, is sitting up in chair. Good appetite. No BM since arrival but "feels it coming", voiding without problems. Other VSS. Labs stable. repeat CXR this am is also stable. Functional Status: Reports: Pain Controlled, Tolerating Diet, Ambulating, Urinating, Incentive Spirometry. Denies: New Symptoms - Review of Systems General: Reports: Weakness (improving). Denies: Fever HEENT: Reports: No Symptoms Pulmonary: Reports: Cough (improved). Denies: Shortness of Breath, Pleuritic Chest Pain Cardiovascular: Reports: No Symptoms. Denies: Chest Pain, Palpitations Gastrointestinal: Reports: No Symptoms Genitourinary: Reports: No Symptoms Neurological: Reports: No Symptoms - Patient Data Vitals - Most Recent: Last Vital Signs Temp 97.9 F 06/26/17 07:37 Pulse 65 06/26/17 07:37 Resp 24 H 06/26/17 07:37 BP 153/77 H 06/26/17 07:37 Pulse Ox 94 L 06/26/17 07:37 Weight - Most Recent: 226 lb 3 oz I&O - Last 24 Hours: Intake & Output 06/25/17 06/26/17 06/26/17 22:59 06:59 14:59 Intake Total 1730 600 Balance 1730 600 Lab Results Last 24 Hours: Laboratory Results - last 24 hr 06/25/17 06/26/17 06/26/17 Range/Units 05:40 05:45 05:45 WBC 5.24 (4.23-9.07) K/mm3 RBC 4.85 (4.63-6.08) M/mm3 Hgb 13.0 L (13.7-17.5) gm/L Hct 40.4 (40.1-51.0) % MCV 83.3 (79.0-92.2) fl MCH 26.8 (25.7-32.2) pg MCHC 32.2 (32.2-35.5) g/dl RDW Std Deviation 44.5 H (35.1-43.9) fL Plt Count 202 (163-337) K/mm3 MPV 9.3 L (9.4-12.3) fl Neut % (Auto) 65.7 (34.0-67.9) % Lymph % (Auto) 19.1 L (21.8-53.1) % [place] % (Auto) 13.7 H (5.3-12.2) % Eos % (Auto) 1.1 (0.8-7.0) Baso % (Auto) 0.2 (0.1-1.2) % Neut # (Auto) 3.44 (1.78-5.38) K/mm3 Lymph # (Auto) 1.00 L (1.32-3.57) K/mm3 [place] # (Auto) 0.72 (0.30-0.82) K/mm3 Eos # (Auto) 0.06 (0.04-0.54) K/mm3 Baso # (Auto) 0.01 (0.01-0.08) K/mm3 Manual Slide Review Not Reportable Magnesium 2.2 (1.8-2.4) mg/dl Mycoplasma pneumon IgM Negative (NEGATIVE) Neil Results Last 24 Hours: Microbiology 06/24/17 18:25 Respiratory Virus Panel (PCR) (NEIL) - Final Nasopharyngeal Swab - Nare, Left Med Orders - Current: Current Medications Albuterol (Proventil Neb Soln) 2.5 mg NEB Q4HRRT PRN PRN Reason: Shortness of Breath Albuterol/Ipratropium (Duoneb 3.0-0.5 Mg/3 Ml) 3 ml NEB Q6HRRT [facility] Last Admin: 06/26/17 03:19 Dose: 3 ml Aspirin (Halfprin) 81 mg PO DAILY [facility] Last Admin: 06/25/17 08:33 Dose: 81 mg Calcium Carbonate/Glycine (Tums) 500 mg PO BEDTIME [facility] Last Admin: 06/25/17 20:13 Dose: 500 mg Finasteride (Proscar) 5 mg PO DAILY [facility] Last Admin: 06/25/17 08:33 Dose: 5 mg Flunisolide (Nasalide Nasal [place]) 0 ml LASHA Q12H [facility] Last Admin: 06/25/17 20:12 Dose: Not Given Azithromycin 500 mg/ Sodium (Chloride) 250 mls @ 250 mls/hr IV Q24H [facility] Last Admin: 06/25/17 12:58 Dose: 250 mls/hr Ceftriaxone Sodium 2 gm/ (Dextrose/Water) 100 mls @ 200 mls/hr IV Q24H [facility] Last Admin: 06/25/17 15:32 Dose: 200 mls/hr Levetiracetam (Keppra) 1,000 mg PO DAILY [facility] Last Admin: 06/25/17 08:33 Dose: 1,000 mg Magnesium Hydroxide (Milk Of Magnesia) 30 ml PO DAILY PRN PRN Reason: Constipation Last Admin: 06/25/17 20:33 Dose: 30 ml Metoprolol Succinate (Toprol Xl) 12.5 mg PO BID [facility] Last Admin: 06/25/17 20:13 Dose: 12.5 mg Pantoprazole Sodium (Protonix) 40 mg PO BIDMEALS [facility] Last Admin: 06/26/17 06:00 Dose: 40 mg Simethicone (Simethicone) 160 mg PO DAILY [facility] Sodium Chloride (Saline Flush) 10 ml FLUSH ASDIRECTED PRN PRN Reason: Keep Vein Open Last Admin: 06/24/17 15:25 Dose: 10 ml Tamsulosin HCl (Flomax) 0.4 mg PO DAILY [facility] Last Admin: 06/25/17 08:33 Dose: 0.4 mg Discontinued Medications Albuterol/Ipratropium (Duoneb 3.0-0.5 Mg/3 Ml) 3 ml NEB ONETIME ONE Stop: 06/24/17 15:38 Last Admin: 06/24/17 15:51 Dose: 3 ml Albuterol/Ipratropium (Duoneb 3.0-0.5 Mg/3 Ml) 3 ml NEB QID PRN PRN Reason: Shortness of Breath Famotidine (Pepcid) 40 mg PO BEDTIME [facility] Last Admin: 06/24/17 20:02 Dose: 40 mg Ceftriaxone Sodium 2 gm/ (Sodium Chloride) 100 mls @ 200 mls/hr IV ONETIME ONE Stop: 06/24/17 16:39 Last Admin: 06/24/17 16:18 Dose: 200 mls/hr Non-Formulary Medication (Salmeterol Xinafoate) 1 puff INH BID [facility] Pantoprazole Sodium (Protonix) 40 mg PO BID [facility] Last Admin: 06/25/17 20:14 Dose: 40 mg - Exam Quality Assessment: Supplemental Oxygen, DVT Prophylaxis General: Alert, Oriented, Cooperative, No Acute Distress HEENT: Pupils Equal, EOMI, Mucous Membr. Moist/[place] Neck: Supple Lungs: Normal Respiratory Effort, Decreased Breath Sounds Cardiovascular: Regular Rate, Regular Rhythm GI/Abdominal Exam: Normal Bowel Sounds, Soft, Non-Tender (Male) Exam: Deferred Extremities: Normal Inspection, No Pedal Edema, Normal Capillary Refill Peripheral Pulses: 2+: Dorsalis Pedis (L), Dorsalis Pedis (R) Neurological: No New Focal Deficit Psy/Mental Status: Alert, Normal Affect, Normal Mood - Problem List & Annotations (1) Pneumonia SNOMED Code(s): 048310148 Code(s): J18.9 - PNEUMONIA, UNSPECIFIED ORGANISM Status: Acute Priority: High Current Visit: Yes Qualifiers: Pneumonia type: due to unspecified organism Laterality: right Lung location: lower lobe of lung Qualified Code(s): J18.1 - Lobar pneumonia, unspecified organism (2) Lung cancer SNOMED Code(s): 509194208 Code(s): C34.90 - MALIGNANT NEOPLASM OF UNSP PART OF UNSP BRONCHUS OR LUNG Status: Chronic Priority: Medium Current Visit: No Qualifiers: Laterality: unspecified laterality (3) Hypertension SNOMED Code(s): 05690665 Code(s): I10 - ESSENTIAL (PRIMARY) HYPERTENSION Status: Chronic Priority : Medium Current Visit: Yes Qualifiers: Hypertension type: essential hypertension Qualified Code(s): I10 - Essential (primary) hypertension (4) Seizures SNOMED Code(s): 24601903 Code(s): R56.9 - UNSPECIFIED CONVULSIONS Status: Chronic Priority: Low Current Visit: No - Problem List Review Problem List Initiated/Reviewed/Updated: Yes - My Orders Last 24 Hours: My Active Orders 06/25/17 10:27 RT Aerosol Therapy [RC] ASDIRECTED 06/25/17 15:00 Albuterol/Ipratropium [DuoNeb 3.0-0.5 MG/3 ML] 3 ml NEB Q6HRRT - Plan Plan:: Impression: Acute: CAP with Hypoxia, Improved - Risk Factor: History of lung resection - On IV Azithromycin/Rocephin Daily - Afebrile with normal WBC and CRP - Mycoplasma Ag and Blood Culture Negative, neg strep pneumonia ag, negative flu. Resp viral panel results with + chlamydiophilia pneumonia--zithromax to cover atypicals - RT, nebs, Continue IS/FV use as directed - Mucinex - CXR this am is stable Chronic HTN- stable GERD- PPI BID- home med continue Former tobacco History of Lung Ca History of Seizures- cont keppra, home med Plan: He is clinically stable Continue current treatment Routine Daily Labs Ambulate as tolerated DVT/GI prophylaxis: SCDs and PPIs DC plan: wean from supplemental oxygen, ambulate today, cont IV abx with plans for likely DC home tomorrow. Patient is Full Code status Dr. Martinez is PCP with [facility]
[2017-06-26] MEDS: guaiFENesin 600 MG Tab.ER PO SCH ×2 (09:15→20:55)
[2017-06-26] MEDS: levETIRAcetam 500 MG Tab PO SCH ×2 (09:15→20:55)
[2017-06-26] MEDS: Aspirin 81 MG Tab.EC PO SCH (09:16)
[2017-06-26] MEDS: Tamsulosin 0.4 MG Cap.ER PO SCH (09:16)
[2017-06-26] MEDS: Simethicone 80 MG Tab.Chew PO SCH (09:16)
[2017-06-26] MEDS: Saccharomyces Boulardii (Probiotic) 250 MG Cap PO SCH ×2 (09:17→20:56)
[2017-06-26] MEDS: Metoprolol Succinate 25 MG Tab.ER PO SCH ×2 (09:17→20:55)
[2017-06-26] MEDS: Finasteride 5 MG Tab PO SCH (09:17)
--- NOTE | 2017-06-26 10:03 | CR ---
Chest: Two views of the chest were obtained. Comparison: Previous chest x-ray of 06/24/17. Continued parenchymal density is noted within the right lung base which is stable in appearance. Minimal scarring within the lateral left costophrenic angle is seen. Lungs otherwise are clear. Previous left-sided surgery is noted. Degenerative spurring and mild scoliosis noted within the spine. Heart size appears within normal limits. Stable pleural thickening within the lateral left costophrenic angle is seen. Impression: 1. Chest appears stable from prior study. Diagnostic code #3
[2017-06-26] MEDS: Azithromycin 500 MG in Sodium Chloride 0.9% 250 ML IV SCH (13:35)
[2017-06-26] MEDS: Calcium Carbonate 500 MG Tab.Chew PO SCH (20:54)
[2017-06-27] MEDS: Albuterol/Ipratropium 3.0-0.5 MG/3 ML Neb Soln NEB SCH ×2 (03:01→08:29)
[2017-06-27] MEDS: Pantoprazole 40 MG Tab.CR PO SCH (06:17)
--- NOTE | 2017-06-27 07:02 | PCM.DCSUM1 ---
Discharge Summary - Hospital Course Free Text/Narrative:: 82-year-old male is sent over from the [place] walk-in clinic for evaluation and treatment of hypoxia. Reportedly the patient had low oxygen sats in the 80s in the clinic. Per nursing report when he arrived here he was 85 on room air. After resting in the bed his oxygen improved to 90% on room air. The patient reports the last 3 weeks he has been ill with cough and cold symptoms. Reports sinus congestion, productive cough and malaise. He has not had any fevers, nausea or diarrhea. He reports he does not have much of an appetite and has lost approximately 5-6 pounds over the last week due to his decreased appetite. Additionally, he reports that he has been experiencing worsening dyspnea on exertion. He is also appreciated worsening edema to the bilateral lower legs. Reports orthopnea. Patient also reports that he feels that he is bloated. No diarrhea. He still passes gas like normal. He has had previous abdominal surgeries. Past medical history is significant for seizures. He currently sees a neurologist and is on Keppra for his seizures. He has not had one in several years. Patient reports that he was previously on he water pill but was taken off approximately a month to month and a half ago by his neurologist is concerned it was interacting with his other medications. History of lung cancer. Reports Left lower lobe lobectomy. Reports he had an influenza vaccine this season. PCP is Dr. Martinez. CXR in ED shows RLL PNA- Hospitalist service is consulted for admission for CAP. - Discharge Data Discharge Date: 06/27/17 (admit date 06/24/17) Discharge Disposition: Home, Self-Care 01 Condition: Good - Discharge Diagnosis/Problem(s) (1) Pneumonia SNOMED Code(s): 324187962 ICD Code: J18.9 - PNEUMONIA, UNSPECIFIED ORGANISM Status: Acute Priority : High Current Visit: Yes Qualifiers: Pneumonia type: due to unspecified organism Laterality: right Lung location: lower lobe of lung Qualified Code(s): J18.1 - Lobar pneumonia, unspecified organism (2) Lung cancer SNOMED Code(s): 921545531 ICD Code: C34.90 - MALIGNANT NEOPLASM OF UNSP PART OF UNSP BRONCHUS OR LUNG Status: Chronic Priority: Medium Current Visit: No Qualifiers: Laterality: unspecified laterality (3) Hypertension SNOMED Code(s): 84315808 ICD Code: I10 - ESSENTIAL (PRIMARY) HYPERTENSION Status: Chronic Priority : Medium Current Visit: Yes Qualifiers: Hypertension type: essential hypertension Qualified Code(s): I10 - Essential (primary) hypertension (4) Seizures SNOMED Code(s): 14799020 ICD Code: R56.9 - UNSPECIFIED CONVULSIONS Status: Chronic Priority: Low Current Visit: No - Patient Summary/Data Operative Procedure(s) Performed: None Complications: None Consults: None Labs Pending at D/C: None Recommended Follow-up Testing/Procedures: Patient DC instructions: Follow-up with your primary doctor to have TDaP vaccine. There is no record of you having this vaccine in [place]. Your last TD was in 2008. Nebulizer 4 times daily for at least 2 weeks then as needed Push fluids Ambulate 3-4 times daily Follow up with PCP, Dr. Martinez within one week of discharge; may need repeat chest xray in [address] Martinez discretion. Planned Operative Procedure(s) after DC: None Hospital Course: Impression: Acute: CAP with Hypoxia, Improved - Risk Factor: History of lung resection - On IV Azithromycin/Rocephin Daily - Afebrile with normal WBC and CRP - Mycoplasma Ag and Blood Culture Negative, neg strep pneumonia ag, negative flu. 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 Patient is Full Code status Dr. Martinez is PCP with [facility] - Patient Instructions Diet: Usual Diet as Tolerated, Drink 8-10+ Glasses/Day Activity: As Tolerated, Rest and Relax Today Showering/Bathing: May Shower Notify Provider of: Fever, Increased Pain, Nausea and/or Vomiting (worsening of cough or shortness of breath) - Discharge Plan Prescriptions/Med Rec: Albuterol/Ipratropium [DuoNeb 3.0-0.5 MG/3 ML] 3 ml NEB Q6HRRT #1 box Azithromycin [Zithromax] 500 mg PO DAILY #5 tablet guaiFENesin [Mucinex] 1,200 mg PO BID #40 tab.er Home Medications: Home Meds Aspirin 81 mg PO DAILY 01/30/17 [History] Calcium Carbonate [Tums] 500 mg PO BEDTIME 01/30/17 [History] Cyanocobalamin (Vitamin B-12) [Vitamin B-12] 1,000 mcg PO DAILY 01/30/17 [ History] Dutasteride [Avodart] 0.5 mg PO DAILY 01/30/17 [History] Esomeprazole Magnesium [Nexium] 40 mg PO BID 01/30/17 [History] Famotidine [Take Home: Famotidine 20 MG, 3 Tab Pack] 40 mg PO BEDTIME 01/30/17 [ History] Fluticasone Propionate [Flonase] 1 puff INH BID 01/30/17 [History] Magnesium Hydroxide [Milk of Magnesia] 30 ml PO DAILY PRN 01/30/17 [History] Metoprolol Succinate 12.5 mg PO BID 01/30/17 [History] Salmeterol Xinafoate [Serevent Diskus] 1 puff INH BID 01/30/17 [History] Tamsulosin [Flomax] 0.4 mg PO DAILY 01/30/17 [History] levETIRAcetam [Levetiracetam] 1,000 mg PO BID 01/30/17 [History] Lycopene/Lut XT/Fruit Extracts [Fruit & Vegetable Daily Sftgel] 1 each PO DAILY 06/24/17 [History] Simethicone [Gas-X Ultra Strength] 1 tab PO DAILY 06/24/17 [History] Albuterol/Ipratropium [DuoNeb 3.0-0.5 MG/3 ML] 3 ml NEB Q6HRRT #1 box 06/27/17 [ Rx] Azithromycin [Zithromax] 500 mg PO DAILY #5 tablet 06/27/17 [Rx] guaiFENesin [Mucinex] 1,200 mg PO BID #40 tab.er 06/27/17 [Rx] Patient Handouts: Community-Acquired Pneumonia, Adult Forms: ED Department Discharge Referrals: Noé Martinez MD [Primary Care Provider] - - Discharge Summary/Plan Comment DC Time >30 min.: Yes (40 min) - General Info Date of Service: 06/27/17 Admission Dx/Problem (Free Text: Admission Diagnosis/Problem Admission Diagnosis/Problem Pneumonia Patient doing well this morning. Denies c/o pain, no SOB, cough is improved. Afebrile overnight. Has been up ambulatory, is sitting up in chair. Good appetite. Other VSS. Labs stable. Will DC home today with /family. Functional Status: Reports: Pain Controlled, Tolerating Diet, Ambulating, Urinating, Incentive Spirometry. Denies: New Symptoms - Review of Systems General: Reports: No Symptoms HEENT: Reports: No Symptoms Pulmonary: Reports: Cough (improved). Denies: Shortness of Breath Cardiovascular: Reports: No Symptoms. Denies: Chest Pain, Dyspnea on Exertion, Lightheadedness Gastrointestinal: Reports: No Symptoms. Denies: Abdominal Pain, Diarrhea, Nausea, Vomiting Genitourinary: Reports: No Symptoms Musculoskeletal: Reports: No Symptoms Neurological: Reports: No Symptoms Psychiatric: Reports: No Symptoms - Patient Data Vitals - Most Recent: Last Vital Signs Temp 97.2 F 06/27/17 02:29 Pulse 64 06/27/17 02:29 Resp 18 06/27/17 02:29 BP 123/70 06/27/17 02:29 Pulse Ox 92 L 06/27/17 03:01 Weight - Most Recent: 220 lb 4.8 oz I&O - Last 24 hours: Intake & Output 06/26/17 06/27/17 06/27/17 22:59 06:59 14:59 Intake Total 2210 350 Output Total 220 Balance 2210 130 Lab Results - Last 24 hrs: Laboratory Results - last 24 hr 06/26/17 06/27/17 Range/Units 05:45 05:59 WBC 5.38 (4.23-9.07) K/mm3 RBC 4.69 (4.63-6.08) M/mm3 Hgb 12.8 L (13.7-17.5) gm/L Hct 39.3 L (40.1-51.0) % MCV 83.8 (79.0-92.2) fl MCH 27.3 (25.7-32.2) pg MCHC 32.6 (32.2-35.5) g/dl RDW Std Deviation 45.1 H (35.1-43.9) fL Plt Count 204 (163-337) K/mm3 MPV 9.5 (9.4-12.3) fl Neut % (Auto) 63.5 (34.0-67.9) % Lymph % (Auto) 20.8 L (21.8-53.1) % [place] % (Auto) 13.4 H (5.3-12.2) % Eos % (Auto) 1.9 (0.8-7.0) Baso % (Auto) 0.2 (0.1-1.2) % Neut # (Auto) 3.42 (1.78-5.38) K/mm3 Lymph # (Auto) 1.12 L (1.32-3.57) K/mm3 [place] # (Auto) 0.72 (0.30-0.82) K/mm3 Eos # (Auto) 0.10 (0.04-0.54) K/mm3 Baso # (Auto) 0.01 (0.01-0.08) K/mm3 Magnesium 2.2 (1.8-2.4) mg/dl Med Orders - Current: Current Medications Albuterol (Proventil Neb Soln) 2.5 mg NEB Q4HRRT PRN PRN Reason: Shortness of Breath Albuterol/Ipratropium (Duoneb 3.0-0.5 Mg/3 Ml) 3 ml NEB Q6HRRT [facility] Last Admin: 06/27/17 03:01 Dose: 3 ml Aspirin (Halfprin) 81 mg PO DAILY [facility] Last Admin: 06/26/17 09:16 Dose: 81 mg Calcium Carbonate/Glycine (Tums) 500 mg PO BEDTIME [facility] Last Admin: 06/26/17 20:54 Dose: 500 mg Finasteride (Proscar) 5 mg PO DAILY [facility] Last Admin: 06/26/17 09:17 Dose: 5 mg Flunisolide (Nasalide Nasal [place]) 0 ml LASHA Q12H [facility] Last Admin: 06/26/17 20:55 Dose: 2 spray Guaifenesin (Mucinex) 1,200 mg PO BID [facility] Last Admin: 06/26/17 20:55 Dose: 1,200 mg Azithromycin 500 mg/ Sodium (Chloride) 250 mls @ 250 mls/hr IV Q24H [facility] Last Admin: 06/26/17 13:35 Dose: 250 mls/hr Ceftriaxone Sodium 2 gm/ (Dextrose/Water) 100 mls @ 200 mls/hr IV Q24H [facility] Last Admin: 06/26/17 15:22 Dose: 200 mls/hr Levetiracetam (Keppra) 1,000 mg PO BID [facility] Last Admin: 06/26/17 20:55 Dose: 1,000 mg Magnesium Hydroxide (Milk Of Magnesia) 30 ml PO DAILY PRN PRN Reason: Constipation Last Admin: 06/25/17 20:33 Dose: 30 ml Metoprolol Succinate (Toprol Xl) 12.5 mg PO BID [facility] Last Admin: 06/26/17 20:55 Dose: 12.5 mg Pantoprazole Sodium (Protonix) 40 mg PO BIDMEALS [facility] Last Admin: 06/27/17 06:17 Dose: 40 mg Saccharomyces Boulardii (Florastor) 250 mg PO BID [facility] Last Admin: 06/26/17 20:56 Dose: 250 mg Simethicone (Simethicone) 160 mg PO DAILY [facility] Last Admin: 06/26/17 09:16 Dose: 160 mg Sodium Chloride (Saline Flush) 10 ml FLUSH ASDIRECTED PRN PRN Reason: Keep Vein Open Last Admin: 06/24/17 15:25 Dose: 10 ml Tamsulosin HCl (Flomax) 0.4 mg PO DAILY [facility] Last Admin: 06/26/17 09:16 Dose: 0.4 mg Discontinued Medications Albuterol/Ipratropium (Duoneb 3.0-0.5 Mg/3 Ml) 3 ml NEB ONETIME ONE Stop: 06/24/17 15:38 Last Admin: 06/24/17 15:51 Dose: 3 ml Albuterol/Ipratropium (Duoneb 3.0-0.5 Mg/3 Ml) 3 ml NEB QID PRN PRN Reason: Shortness of Breath Famotidine (Pepcid) 40 mg PO BEDTIME [facility] Last Admin: 06/24/17 20:02 Dose: 40 mg Ceftriaxone Sodium 2 gm/ (Sodium Chloride) 100 mls @ 200 mls/hr IV ONETIME ONE Stop: 06/24/17 16:39 Last Admin: 06/24/17 16:18 Dose: 200 mls/hr Levetiracetam (Keppra) 1,000 mg PO DAILY [facility] Last Admin: 06/26/17 09:15 Dose: 1,000 mg Non-Formulary Medication (Salmeterol Xinafoate) 1 puff INH BID [facility] Pantoprazole Sodium (Protonix) 40 mg PO BID [facility] Last Admin: 06/25/17 20:14 Dose: 40 mg - Exam Quality Assessment: Reports: DVT Prophylaxis General: Reports: Alert, Oriented, Cooperative, No Acute Distress HEENT: Reports: Pupils Equal, EOMI, Mucous Membr. Moist/[place] Neck: Reports: Supple Lungs: Reports: Clear to Auscultation, Normal Respiratory Effort, Decreased Breath Sounds (bases) Cardiovascular: Reports: Regular Rate, Regular Rhythm GI/Abdominal Exam: Normal Bowel Sounds, Soft, Non-Tender (Male) Exam: Deferred Rectal (Males) Exam: Deferred Extremities: Normal Inspection, No Pedal Edema, Normal Capillary Refill Neurological: Reports: No New Focal Deficit Psy/Mental Status: Reports: Alert, Normal Affect, Normal Mood *Q Meaningful Use (DIS) - VTE *Q VTE Criteria *Q: - Stroke *Q Stroke Criteria *Q: - AMI *Q AMI Criteria *Q:
[2017-06-27] MEDS: Saccharomyces Boulardii (Probiotic) 250 MG Cap PO SCH (08:06)
[2017-06-27] MEDS: Tamsulosin 0.4 MG Cap.ER PO SCH (08:06)
[2017-06-27] MEDS: Simethicone 80 MG Tab.Chew PO SCH (08:07)
[2017-06-27] MEDS: Finasteride 5 MG Tab PO SCH (08:07)
[2017-06-27] MEDS: levETIRAcetam 500 MG Tab PO SCH (08:08)
[2017-06-27] MEDS: guaiFENesin 600 MG Tab.ER PO SCH (08:08)
[2017-06-27] MEDS: Aspirin 81 MG Tab.EC PO SCH (08:08)
[2017-06-27] MEDS: Metoprolol Succinate 25 MG Tab.ER PO SCH (08:10)
[2017-06-27 08:51] VITALS: BP 114/55
== END 2017-06-27 12:31 | disposition home or self-care (01) | DRG 195 ==
LOC: JD.ED 14:01 → JD.ICU 16:21 → UNDOADMIN 16:21 → JD.ICU 16:53 → JD.MS 06-25 16:52
PROVIDERS: ADMIT Internal Medicine Cardiovascular Disease; ATTEND Internal Medicine Cardiovascular Disease
DX: J18.9 Pneumonia, unspecified organism (principal); R09.02 Hypoxemia; I10 Essential (primary) hypertension; K21.9 Gastro-esophageal reflux disease without esophagitis; Z85.118 Personal history of other malignant neoplasm of bronchus and lung; G40.909 Epilepsy, unspecified, not intractable, without status epilepticus; H91.90 Unspecified hearing loss, unspecified ear; H54.7 Unspecified visual loss; J30.1 Allergic rhinitis due to pollen; Z87.891 Personal history of nicotine dependence; Z79.82 Long term (current) use of aspirin; Z79.899 Other long term (current) drug therapy; R06.02 Shortness of breath
CPT/HCPCS: 36415; 71046; 74019; 80053; 81001; 83605; 83690; 83880; 84484; 85025; 86140; 87040 ×2; 87086; 87804 ×2; 87899; 93005; 94640; 94762; 96365; 99285; J0696; J7030; J7050; 80048; 83735; 86738; 87486; 87581; 87633; 87798; 94667; 94761; A9270-GY; J0456; J7060

== ENCOUNTER 2018-11-07 12:37 | Emergency (ER) | payer MEDICAID, MEDICARE ==
[2018-11-07 12:55] VITALS: BP 155/75
--- NOTE | 2018-11-07 13:05 | EDM.PDOC ---
ED HPI GENERAL MEDICAL PROBLEM - General Chief Complaint: Syncope Stated Complaint: SYNCOPE Time Seen by Provider: 11/07/18 12:53 - History of Present Illness INITIAL COMMENTS - FREE TEXT/NARRATIVE: 83-year-old male sent here from the [place] [facility] after a couple syncopal episodes and abnormalities on his EKG On Saturday night the patient had 2 episodes where he developed some dizziness and then found himself on the floor he's not sure how long he was on the floor. Confusing the situation as the patient's had a history of seizures however prior to seizures he does not feel dizzy and he develops a sensation around his nose before he has a seizure. Patient is not any chest pain chest pressure recently no breathing difficulties or shortness of breath. The EKG done at the [facility] shows a mild sinus bradycardia with multiple frequent PACs. Patient is uncertain if he has had with both of these episodes. - Related Data Allergies Allergy/AdvReac Type Severity Reaction Status Date / Time No Known Allergies Allergy Verified 11/07/18 12:50 Home Meds: Home Meds Aspirin 81 mg PO DAILY 01/30/17 [History] Calcium Carbonate [Tums] 500 mg PO BEDTIME 01/30/17 [History] Cyanocobalamin (Vitamin B-12) [Vitamin B-12] 1,000 mcg PO DAILY 01/30/17 [ History] Dutasteride [Avodart] 0.5 mg PO DAILY 01/30/17 [History] Esomeprazole Magnesium [Nexium] 40 mg PO BID 01/30/17 [History] Famotidine [Take Home: Famotidine 20 MG, 3 Tab Pack] 40 mg PO BEDTIME 01/30/17 [ History] Fluticasone Propionate [Flonase] 1 puff INH BID 01/30/17 [History] Magnesium Hydroxide [Milk of Magnesia] 30 ml PO DAILY PRN 01/30/17 [History] Metoprolol Succinate 12.5 mg PO BID 01/30/17 [History] Salmeterol Xinafoate [Serevent Diskus] 1 puff INH BID 01/30/17 [History] Tamsulosin [Flomax] 0.4 mg PO DAILY 01/30/17 [History] levETIRAcetam [Levetiracetam] 1,000 mg PO BID 01/30/17 [History] levETIRAcetam [Keppra] 1,000 mg PO BID 11/07/18 [History] Past Medical History HEENT History: Reports: Hard of Hearing, Impaired Vision, Other (See Below) Other HEENT History: dentures, glasses Cardiovascular History: Reports: Hypertension Respiratory History: Reports: Other (See Below) Other Respiratory History: lung resection of left lower lobe and lung cancer Gastrointestinal History: Reports: GERD, Other (See Below) Other Gastrointestinal History: mcmillan's, lily fundiplication, perforated ulcer Genitourinary History: Reports: None [employer] History: Reports: None Musculoskeletal History: Reports: Other (See Below) Other Musculoskeletal History: R hand 2nd finger ampuation, L knee ligament tear and repair Neurological History: Reports: None Psychiatric History: Reports: None Endocrine/Metabolic History: Reports: None Hematologic History: Reports: None Immunologic History: Reports: None Oncologic (Cancer) History: Reports: Lung Dermatologic History: Reports: None - Past Surgical History Head Surgeries/Procedures: Reports: None HEENT Surgical History: Reports: Tonsillectomy GI Surgical History: Reports: Colonoscopy, EGD, Lily Fundoplication Neurological Surgical History: Reports: Other (See Below) Other Neurological Surgeries/Procedures: crainiotomy for removal of blood clot behind eye Social & Family History - Family History Family Medical History: Noncontributory - Caffeine Use Caffeine Use: Reports: None ED ROS GENERAL - Review of Systems Review Of Systems: See Below Constitutional: Reports: No Symptoms HEENT: Reports: No Symptoms Respiratory: Reports: No Symptoms Cardiovascular: Reports: Syncope GI/Abdominal: Reports: No Symptoms : Reports: No Symptoms Musculoskeletal: Reports: No Symptoms Skin: Reports: No Symptoms Neurological: Reports: Dizziness (Prior to the blacking out episodes), Syncope. Denies: Confusion, Headache, Numbness Psychiatric: Reports: No Symptoms Hematologic/Lymphatic: Reports: No Symptoms Immunologic: Reports: No Symptoms - Physical Exam Exam: See Below Exam Limited By: No Limitations General Appearance: Alert, No Apparent Distress Eye Exam: Bilateral Eye: EOMI, Normal Inspection, PERRL Ears: Normal External Exam, Normal Canal, Hearing Grossly Normal, Normal TMs Nose: Normal Inspection, Normal Mucosa, No Blood Throat/Mouth: Normal Inspection, Normal Lips, Normal Teeth, Normal Gums, Normal Oropharynx, Normal Voice, No Airway Compromise Head Exam: Atraumatic, Normocephalic, Other (Prior craniotomy site seen) Neck: Normal Inspection, Supple, Non-Tender, Full Range of Motion. No: Lymphadenopathy (R), Tender Midline Respiratory/Chest: No Respiratory Distress, Lungs Clear, Normal Breath Sounds Cardiovascular: Normal Peripheral Pulses, Regular Rate, Rhythm, No Murmur GI/Abdominal: Normal Bowel Sounds, Soft, Non-Tender Rectal (Males) Exam: Normal Exam Neuro Exam (Abbreviated): Alert, Oriented, Normal Cognition Back Exam: Normal Inspection, Full Range of Motion, NT Extremities: Other (Moderate lower extremity edema he normally uses compression hose) Psychiatric: Normal Affect, Normal Mood Skin Exam: Warm, Dry, Intact EKG INTERPRETATION EKG Date: 11/07/18 Rhythm: NSR Rate (Beats/Min): 61 [place]: Normal QRS: Other (Near complete right bundle branch block) ST-T: Normal QT: Normal EKG Interpretation Comments: Abnormal Course - Vital Signs Last Recorded V/S: Last Vital Signs Temp 36.1 C 11/07/18 12:51 Pulse 64 11/07/18 12:51 Resp 20 11/07/18 12:51 BP 155/75 H 11/07/18 12:51 Pulse Ox 99 11/07/18 12:51 - Orders/Labs/Meds Orders: Active Orders 24 hr Category Date Time Status EKG Documentation Completion [RC] STAT Care 11/07/18 12:54 Active Holter Monitor 48 Hours [RC] .PRN Care 11/07/18 16:42 Active Head wo Cont [CT] Stat Exams 11/07/18 13:22 Taken Labs: Laboratory Tests 11/07/18 11/07/18 Range/Units 13:25 13:25 WBC 3.85 L (4.23-9.07) K/mm3 RBC 4.69 (4.63-6.08) M/mm3 Hgb 11.9 L (13.7-17.5) gm/L Hct 37.8 L (40.1-51.0) % MCV 80.6 D (79.0-92.2) fl MCH 25.4 L (25.7-32.2) pg MCHC 31.5 L (32.2-35.5) g/dl RDW Std Deviation 46.2 H (35.1-43.9) fL Plt Count 195 (163-337) K/mm3 MPV 10.7 (9.4-12.3) fl Neutrophils % (Manual) 50 (40-60) % Band Neutrophils % 0 (0-10) % Lymphocytes % (Manual) 29 (20-40) % Atypical Lymphs % 0 % Monocytes % (Manual) 16 H (2-10) % Eosinophils % (Manual) 5 (0.8-7.0) % Basophils % (Manual) 0 L (0.2-1.2) Platelet Estimate Adequate Hypochromasia 1+ slight Anisocytosis 3+ marked RBC Morph Comment Abnormal Sodium 138 (136-145) mEq/L Potassium 4.1 (3.5-5.1) mEq/L Chloride 103 (98-107) mEq/L Carbon Dioxide 27 (21-32) mEq/L Anion Gap 12.1 (5-15) BUN 24 H (7-18) mg/dL Creatinine 1.1 (0.7-1.3) mg/dL Est Cr Clr Drug Dosing 50.88 mL/min Estimated GFR (MDRD) > 60 (>60) mL/min BUN/Creatinine Ratio 21.8 H (14-18) Glucose 81 L (83-115) mg/dL Calcium 8.5 (8.5-10.1) mg/dL Total Bilirubin 0.4 (0.2-1.0) mg/dL AST 16 (15-37) U/L ALT 19 (16-63) U/L Alkaline Phosphatase 66 (46-116) U/L Total Protein 6.8 (6.4-8.2) g/dl Albumin 3.3 L (3.4-5.0) g/dl Globulin 3.5 gm/dL Albumin/Globulin Ratio 0.9 L (1-2) - Re-Assessments/Exams Free Text/Narrative Re-Assessment/Exam: 11/07/18 13:50 EKG from the [facility] shows mild sinus bradycardia with multiple PACs labs ordered EKG here does not show any PACs he has a few on the telemetry 11/07/18 14:41 Labs unrevealing as expected. Did get a head CT that was unremarkable prior craniotomy appreciated the patient has had an MRI in the past however scattered couple metallic clips from his craniotomy but they have not gotten in the way of MRI in the past. 11/07/18 16:55 Patient had his MRI did not show any acute evidence of stroke chronic age- related changes noted images discussed with radiologist. At this point we'll get a 48-hour Holter. I discussed the situation with the hospitalist who doesn' t have much to offer him at this point. The patient has follow-up at the [facility] on Saturday and he would like to go home.. I believe a lot of the symptoms are related to most likely cardiogenic syncope not Captured on telemetry here his EKG from the [facility] shows multiple PACs in combination with a sinus bradycardia this in a prolonged fashion could lead to his symptoms or perhaps is having a more significant bradycardia that we have not been able to find yet. Departure - Departure Time of Disposition: 16:56 Disposition: Home, Self-Care 01 Clinical Impression: Syncope, cardiogenic - Discharge Information Referrals: Indira Flower MD [Primary Care Provider] - Forms: ED Department Discharge Additional Instructions: Return to the emergency room with any questions problems worsening symptoms. Do not drive until this is sorted out. Return your Holter monitor as directed. Follow-up at the [facility] clinic on Saturday as they have arranged. - My Orders Last 24 Hours: My Active Orders 11/07/18 12:54 EKG Documentation Completion [RC] STAT 11/07/18 13:22 Head wo Cont [CT] Stat 11/07/18 16:42 Holter Monitor 48 Hours [RC] .PRN - Assessment/Plan Last 24 Hours: My Active Orders 11/07/18 12:54 EKG Documentation Completion [RC] STAT 11/07/18 13:22 Head wo Cont [CT] Stat 11/07/18 16:42 Holter Monitor 48 Hours [RC] .PRN
--- NOTE | 2018-11-07 16:17 | MR ---
MRI brain Technique: T1 sagittal; T2, T1, T2 FLAIR, gradient echo and diffusion axial; T1 and T2 gradient echo coronal images were obtained through the brain. Comparison: Prior head CT study performed earlier on the same day (1:38 PM). Findings: Slight artifact noted from previous left-sided craniotomy. Ventricles along with basal cisterns and sulci over the convexities are mildly prominent. Very minimal areas of increased signal are seen within the periventricular white matter compatible with very minimal small vessel ischemic demyelination change. Minimal area of increased signal is seen within the left side of the cornelio which is felt compatible with similar etiology. There are no acute diffusion abnormalities being seen. No midline shift or mass effect is seen. Normal signal void is seen within the major cerebral arteries within the skull base. Contents of the internal auditory canals appear unremarkable. No cerebellopontine angle cistern mass is seen. Impression: 1. Minimal areas of increased signal within the cornelio as well as periventricular white matter compatible with minimal small vessel ischemic demyelination change. 2. Slight artifact from previous left-sided craniotomy. 3. No acute diffusion abnormalities are seen. Diagnostic code #2
--- NOTE | 2018-11-11 07:24 | CT ---
Head CT Technique: Multiple axial sections through the brain were obtained. Intravenous contrast was not utilized. Comparison: Prior head CT study of 06/01/13. Findings: Ventricles along with basal cisterns and sulci over the convexities are mildly prominent. Previous left-sided craniotomy is seen which is stable. No abnormal parenchymal densities are seen. No evidence of intracranial hemorrhage. No midline shift or mass effect is seen. Bone window settings were reviewed which show no acute calvarial abnormality. Visualized sinuses are clear. Impression: 1. Mild atrophy. Previous left-sided craniotomy. 2. Nothing acute is identified on noncontrast head CT study. Diagnostic code #2 I agree with preliminary report from [facility], finalized on 11/07/18, 2:52 PM Central Time
== END 2018-11-07 17:00 | disposition home or self-care (01) ==
LOC: JD.ED 12:37
DX: R55 Syncope and collapse (principal); I10 Essential (primary) hypertension; K21.9 Gastro-esophageal reflux disease without esophagitis; Z79.899 Other long term (current) drug therapy; Z79.82 Long term (current) use of aspirin
CPT/HCPCS: 36415; 70450; 70450-26; 70551; 70551-26; 80053; 85007; 85027; 93005; 93225; 93226; 99284-25

== ENCOUNTER 2020-02-12 07:42 | Emergency (ER) | payer OTHER, MEDICARE ==
[2020-02-12 08:34] VITALS: BP 143/67; PULSE 67
--- NOTE | 2020-02-12 08:36 | EDM.PDOC ---
ED HPI GENERAL MEDICAL PROBLEM - General Chief Complaint: Back Pain or Injury Stated Complaint: FLANK PAIN Time Seen by Provider: 02/12/20 08:36 - History of Present Illness INITIAL COMMENTS - FREE TEXT/NARRATIVE: 84-year-old male presents the emergency room with left-sided flank pain. He awoke with this today. He denies any significant trauma or lifting strains. He has not noticed any blood in his urine. He denies any breathing difficulties or shortness of breath also denies any chest pain however when he describes the pain and points to himself the left chest seems to be involved. He has not had any nausea or vomiting. He has no prior history of kidney stones. He has had problems with constipation. He did notice similar pain to this earlier in the week that was relieved with having a bowel movement. She is fairly comfortable now the pain is worse when he tries to move or has a change in position. He denies needing anything for pain at this time. Left Lower Back Pain Score (Numeric/FACES): 8 - Related Data Allergies Allergy/AdvReac Type Severity Reaction Status Date / Time No Known Allergies Allergy Verified 02/12/20 08:34 Home Meds: Home Meds Aspirin 81 mg PO DAILY 01/30/17 [History] Calcium Carbonate [Tums] 500 mg PO BEDTIME 01/30/17 [History] Cyanocobalamin (Vitamin B-12) [Vitamin B-12] 1,000 mcg PO DAILY 01/30/17 [History] Dutasteride [Avodart] 0.5 mg PO DAILY 01/30/17 [History] Fluticasone Propionate [Flonase] 1 puff INH BID 01/30/17 [History] Metoprolol Succinate 12.5 mg PO BID 01/30/17 [History] Tamsulosin [Flomax] 0.4 mg PO DAILY 01/30/17 [History] levETIRAcetam [Levetiracetam] 1,000 mg PO BID 01/30/17 [History] Ascorbic Acid [Vitamin C] 500 mg PO DAILY 02/12/20 [History] Ferrous Sulfate 325 mg PO DAILY 02/12/20 [History] Pantoprazole Sodium [Protonix] 40 mg PO DAILY 02/12/20 [History] Past Medical History HEENT History: Reports: Hard of Hearing, Impaired Vision, Other (See Below) Other HEENT History: dentures, glasses Cardiovascular History: Reports: Hypertension Respiratory History: Reports: Other (See Below) Other Respiratory History: lung resection of left lower lobe and lung cancer Gastrointestinal History: Reports: GERD, Other (See Below) Other Gastrointestinal History: mcmillan's, lily fundiplication, perforated ulcer Genitourinary History: Reports: None QUILLER TENDER History: Reports: None Musculoskeletal History: Reports: Other (See Below) Other Musculoskeletal History: R hand 2nd finger ampuation, L knee ligament tear and repair Neurological History: Reports: None Other Neuro History: Seizures since post bleed Psychiatric History: Reports: None Endocrine/Metabolic History: Reports: None Hematologic History: Reports: None Immunologic History: Reports: None Oncologic (Cancer) History: Reports: Lung Dermatologic History: Reports: None - Infectious Disease History Infectious Disease History: Reports: None - Past Surgical History Head Surgeries/Procedures: Reports: None HEENT Surgical History: Reports: Tonsillectomy GI Surgical History: Reports: Colonoscopy, EGD, Lily Fundoplication Neurological Surgical History: Reports: Other (See Below) Other Neurological Surgeries/Procedures: crainiotomy for removal of blood clot behind eye Social & Family History - Family History Family Medical History: Noncontributory - Tobacco Use Smoking Status *Q: Never Smoker - Caffeine Use Caffeine Use: Reports: None - Recreational Drug Use Recreational Drug Use: No ED ROS GENERAL - Review of Systems Review Of Systems: See Below Constitutional: Reports: No Symptoms. Denies: Fever, Chills HEENT: Reports: No Symptoms Respiratory: Reports: No Symptoms Cardiovascular: Reports: Chest Pain (Possible) GI/Abdominal: Reports: Abdominal Pain, Constipation. Denies: Diarrhea, Nausea, Vomiting : Reports: No Symptoms Musculoskeletal: Reports: No Symptoms, Muscle Pain Neurological: Reports: No Symptoms ED EXAM, GENERAL - Physical Exam Exam: See Below Exam Limited By: No Limitations General Appearance: Alert, No Apparent Distress, Other Respiratory/Chest: No Respiratory Distress, Lungs Clear, Normal Breath Sounds, Chest Non-Tender, Other (Large incision from a partial left lung resection) Cardiovascular: Regular Rate, Rhythm, No Edema, No Murmur GI/Abdominal: Normal Bowel Sounds, Soft, Other (Obese abdomen palpation does not seem to make the pain any worse. No rigidity rebound or guarding) Back Exam: Normal Inspection. No: CVA Tenderness (L), CVA Tenderness (R) Extremities: Normal Inspection, No Pedal Edema Neurological: Alert, Oriented, Normal Cognition Course - Vital Signs Last Recorded V/S: Last Vital Signs Temp 36.7 C 02/12/20 08:15 Pulse 67 02/12/20 08:15 Resp 16 02/12/20 08:15 BP 143/67 H 02/12/20 08:15 Pulse Ox 96 02/12/20 08:15 - Orders/Labs/Meds Labs: Laboratory Tests 02/12/20 02/12/20 02/12/20 Range/Units 08:56 09:15 09:15 WBC 4.24 (4.23-9.07) K/mm3 RBC 4.75 (4.63-6.08) M/mm3 Hgb 13.7 D (13.7-17.5) gm/dl Hct 42.5 (40.1-51.0) % MCV 89.5 D (79.0-92.2) fl MCH 28.8 (25.7-32.2) pg MCHC 32.2 (32.2-35.5) g/dl RDW Std Deviation 47.2 H (35.1-43.9) fL Plt Count 157 L (163-337) K/mm3 MPV 9.9 (9.4-12.3) fl Neut % (Auto) 65.5 (34.0-67.9) % Lymph % (Auto) 22.9 (21.8-53.1) % [place] % (Auto) 9.7 (5.3-12.2) % Eos % (Auto) 1.7 (0.8-7.0) Baso % (Auto) 0.0 L (0.1-1.2) % Neut # (Auto) 2.78 (1.78-5.38) K/mm3 Lymph # (Auto) 0.97 L (1.32-3.57) K/mm3 [place] # (Auto) 0.41 (0.30-0.82) K/mm3 Eos # (Auto) 0.07 (0.04-0.54) K/mm3 Baso # (Auto) 0.00 L (0.01-0.08) K/mm3 Sodium 137 (136-145) mEq/L Potassium 4.2 (3.5-5.1) mEq/L Chloride 101 (98-107) mEq/L Carbon Dioxide 30 (21-32) mEq/L Anion Gap 10.2 (5-15) BUN 21 H (7-18) mg/dL Creatinine 1.2 (0.7-1.3) mg/dL Est Cr Clr Drug Dosing 42.84 mL/min Estimated GFR (MDRD) 58 (>60) mL/min BUN/Creatinine Ratio 17.5 (14-18) Glucose 117 H (83-115) mg/dL Calcium 8.9 (8.5-10.1) mg/dL Total Bilirubin 0.3 (0.2-1.0) mg/dL AST 17 (15-37) U/L ALT 11 L (16-63) U/L Alkaline Phosphatase 55 (46-116) U/L Troponin I < 0.017 (0.00-0.056) ng/mL Total Protein 7.3 (6.4-8.2) g/dl Albumin 3.6 (3.4-5.0) g/dl Globulin 3.7 gm/dL Albumin/Globulin Ratio 1.0 (1-2) Triglycerides 50 (<150) mg/dL Cholesterol 126 (<200) mg/dL LDL Cholesterol Direct 72 (<100) mg/dL HDL Cholesterol 43.0 (40-59) mg/dL Urine Color Yellow (Yellow) Urine Appearance Clear (Clear) Urine pH 7.0 (5.0-8.0) Ur Specific [place] 1.020 (1.005-1.030) Urine Protein Negative (Negative) Urine Glucose (UA) Negative (Negative) Urine Ketones Negative (Negative) Urine Occult Blood Negative (Negative) Urine Nitrite Negative (Negative) Urine Bilirubin Negative (Negative) Urine Urobilinogen 0.2 (0.2-1.0) Ur Leukocyte Esterase Negative (Negative) Urine RBC 0-5 (0-5) /hpf Urine WBC 0-5 (0-5) /hpf Ur Epithelial Cells 0-5 (0-5) /hpf Amorphous Sediment Rare H (NOT SEEN) /hpf Urine Bacteria Few (FEW) /hpf Urine Mucus Not seen (FEW) /hpf - Re-Assessments/Exams Free Text/Narrative Re-Assessment/Exam: 02/12/20 11:34 Feeling much better at this time his laboratory evaluation is essentially unrevealing. I offered to do a CT KUB looking for kidney stone however the patient is basically back to baseline now. And he like to hold off on this. Did review his x-rays he is got a slightly increased stool pattern. We will discharge with a bottle of mag citrate. He understands to return to the emergency room with return of symptoms. Departure - Departure Time of Disposition: 11:35 Disposition: Home, Self-Care 01 Clinical Impression: Resolved abdominal pain - Discharge Information Referrals: Indira Flower MD [Primary Care Provider] - Forms: ED Department Discharge Additional Instructions: Return to the emergency room with any questions problems or worsening symptoms. You were sent home with a bottle of magnesium citrate drink this served over ice or mixed with juice. This will help clear out your colon with constipation. Be sure and drink plenty of fluids on a regular basis. Sepsis Event Note (ED) - Evaluation Sepsis Screening Result: No Definite Risk - Focused Exam Vital Signs: Vital Signs Temp Pulse Resp BP Pulse Ox 02/12/20 08:15 36.7 C 67 16 143/67 H 96
--- NOTE | 2020-02-12 10:30 | CR ---
Abdomen: Supine and upright views the abdomen were obtained. Comparison: No prior abdominal x-ray. Scoliosis and degenerative changes noted within the spine. Bowel gas pattern appears normal for age. No free air is seen. No soft tissue abnormality is appreciated. Impression: 1. Nothing acute is seen on 2 view abdominal x-ray. Diagnostic code #2 This report was dictated in MDT
--- NOTE | 2020-02-12 10:30 | CR ---
Chest: PA view of the chest was obtained. Comparison: No previous chest imaging. Heart is shifted into the left chest. This most likely is due to volume loss on the left side from previous surgery. Right lung is clear. Left lung shows no definite acute parenchymal change. Previous left-sided rib resection is seen as well as old healed left rib fractures. Degenerative change is noted within the spine. Impression: 1. Presumed left chest surgery. 2. Nothing acute is definitely appreciated. Diagnostic code #2 This report was dictated in MDT
[2020-02-12] MEDS ORDERED: Magnesium Citrate Solution 296 ML Bottle PO ONE (11:33)
== END 2020-02-12 12:02 | disposition home or self-care (01) ==
LOC: JD.ED 07:42
DX: R10.9 Unspecified abdominal pain (principal); I10 Essential (primary) hypertension; K21.9 Gastro-esophageal reflux disease without esophagitis; E66.9 Obesity, unspecified; Z68.34 Body mass index [BMI] 34.0-34.9, adult; Z79.899 Other long term (current) drug therapy
CPT/HCPCS: 36415; 71045; 74019; 80053; 80061; 81001; 84484; 85025; 99284; A9270; 99282

== ENCOUNTER 2020-07-30 13:12 | Emergency (ER) | payer MEDICARE, OTHER, MEDICAID ==
[2020-07-30 13:27] VITALS: BP 170/87; PULSE 75
[2020-07-30] MEDS ORDERED: Sodium Chloride 0.9% 10 ML Syringe FLUSH PRN (13:46)
--- NOTE | 2020-07-30 13:46 | EDM.PDOC ---
ED HPI GENERAL MEDICAL PROBLEM - General Chief Complaint: Trauma Stated Complaint: FALL/POSS MULTIPLE INJURIES Time Seen by Provider: 07/30/20 13:41 Source of Information: Reports: Patient, Family (spouse) History Limitations: Reports: No Limitations - History of Present Illness INITIAL COMMENTS - FREE TEXT/NARRATIVE: 84-year-old male presents to the ED in the accompaniment of his . Reportedly he fell down 4 stairs in his garage around noon today and struck the bumper of his car with his left anterior lateral ribs. He then fell hard to the floor and was almost under the car. Suffered acute injury to the left lower extremity with abrasion to the left knee and obvious deformity to the distal left tib-fib. He denies hitting his head or losing consciousness. He is not on any blood thinners. Denies any worsening of neck pain. No pain in his upper anterior chest but pain in the left lower ribs particular [id number] anterior laterally. No injuries to the upper extremities. Patient has poor visual acuity making him more prone to falling. He is unable to weight-bear on the left leg. Onset: Today, Sudden Onset Date: 07/30/20 Onset Time: 12:00 Duration: Minutes:, Constant, Getting Worse Location: Reports: Chest (Left anterior lateral lower ribs 8, 9 and 10.), Lower Extremity, Left (Left greater trochanteric process of hip and left tib-fib deformity.) Quality: Reports: Ache Severity: Mild Improves with: Reports: Rest Worsens with: Reports: Movement Context: Reports: Trauma. Denies: Activity, Exercise, Lifting, Sick Contact Associated Symptoms: Reports: Chest Pain (Rib pain left anterior lateral lower ribs), Shortness of Breath. Denies: Confusion (Fall at home.), Cough, cough w sputum, Diaphoresis, Fever/Chills, Headaches, Loss of Appetite, Malaise, Rash, Seizure, Syncope (Mildly short of breath as deep breathing aggravates the pain in his left lower ribs.) Treatments MECHANISM ASSEMBLER: Reports: Other (see below) (None.) Left Lower Leg Pain Score (Numeric/FACES): 10 - Related Data Allergies Allergy/AdvReac Type Severity Reaction Status Date / Time No Known Allergies Allergy Verified 07/30/20 13:27 Home Meds: Home Meds Aspirin 81 mg PO DAILY 01/30/17 [History] Calcium Carbonate [Tums] 500 mg PO BEDTIME 01/30/17 [History] Cyanocobalamin (Vitamin B-12) [Vitamin B-12] 1,000 mcg PO DAILY 01/30/17 [History] Dutasteride [Avodart] 0.5 mg PO DAILY 01/30/17 [History] Metoprolol Succinate 12.5 mg PO BID 01/30/17 [History] Tamsulosin [Flomax] 0.4 mg PO DAILY 01/30/17 [History] levETIRAcetam [Levetiracetam] 1,000 mg PO BID 01/30/17 [History] Ascorbic Acid [Vitamin C] 500 mg PO DAILY 02/12/20 [History] Pantoprazole Sodium [Protonix] 40 mg PO DAILY 02/12/20 [History] Furosemide [Lasix] 20 mg PO DAILY #30 tab 07/30/20 [Rx] Past Medical History HEENT History: Reports: Hard of Hearing, Impaired Vision, Other (See Below) Other HEENT History: dentures, glasses Cardiovascular History: Reports: Hypertension Respiratory History: Reports: Other (See Below) Other Respiratory History: lung resection of left lower lobe and lung cancer Gastrointestinal History: Reports: GERD, Other (See Below) Other Gastrointestinal History: mcmillan's, lily fundiplication, perforated ulcer Genitourinary History: Reports: None SECURITY ASSURANCE ANALYST History: Reports: None Musculoskeletal History: Reports: Other (See Below) Other Musculoskeletal History: R hand 2nd finger ampuation, L knee ligament tear and repair Neurological History: Reports: None Other Neuro History: Seizures since post bleed Psychiatric History: Reports: None Endocrine/Metabolic History: Reports: None Hematologic History: Reports: None Immunologic History: Reports: None Oncologic (Cancer) History: Reports: Lung Dermatologic History: Reports: None - Infectious Disease History Infectious Disease History: Reports: None - Past Surgical History Head Surgeries/Procedures: Reports: None HEENT Surgical History: Reports: Tonsillectomy GI Surgical History: Reports: Colonoscopy, EGD, Lily Fundoplication Neurological Surgical History: Reports: Other (See Below) Other Neurological Surgeries/Procedures: crainiotomy for removal of blood clot b ehind eye Social & Family History - Family History Family Medical History: No Pertinent Family History - Caffeine Use Caffeine Use: Reports: None - Living Situation & Occupation Living situation: Reports: Occupation: Retired Review of Systems - Review of Systems Review Of Systems: See Below Constitutional: Denies: Chills, Diaphoresis, Fever, Weakness, Other Eyes: Reports: Decreased Acuity Ears: Reports: Other Nose: Reports: No Symptoms (Mildly hard of hearing.) Mouth/Throat: Reports: No Symptoms Respiratory: Reports: Shortness of Breath. Denies: Wheezing, Pleuritic Chest Pain, Cough Cardiovascular: Denies: Chest Pain GI/Abdominal: Reports: Constipation Genitourinary: Reports: Other (Known BPH nocturia x3) Musculoskeletal: Reports: Neck Pain, Shoulder Pain, Back Pain, Joint Pain (Knees hips.) Skin: Reports: Other (Abrasions to the left patella today.). Denies: Bruising, Pruritis, Rash Neurological: Reports: Dizziness, Seizure (Patient will dizziness when he assumes a standing position. Known seizure disorder and takes Keppra twice daily), Difficulty Walking (Walks with a shuffling type gait.) Psychiatric: Reports: No Symptoms ED EXAM, GENERAL - Physical Exam Exam: See Below Exam Limited By: No Limitations General Appearance: Alert, WD/WN, Mild Distress, Other (Is is pain is only a 1 out of 10 in his left lower extremity. Temperature is 36.1 with a heart rate of 75 and sinus respiratory is 20 with O2 sats 100% room air BP 170/87.) Eye Exam: Right Eye: Other (Right eyelid is for the most part closed. He has very very limited vision out of his right eye.) Throat/Mouth: Normal Inspection, Normal Lips, Normal Oropharynx, Other Head: Other (Dental or tongue injuries. Evidence of previous craniotomy left temporal parietal scalp. Had a subdural bleed many years ago) Neck: Normal Inspection, Limited Range of Motion, Tender Lateral (Or laterally but he states nothing new for him.). No: Supple, Lymphadenopathy (L) (Hepatus with lateral rotation or flexion.), Lymphadenopathy (R) Respiratory/Chest: Respiratory Distress (Mild tachypnea at rest.), Decreased Breath Sounds (Decreased breath sounds to the lower posterior lung cisneros by about 20%.), Other (Pain localized to the anterior lateral ribs 8, 9 and 10 to palpation without any subcutaneous emphysema or obvious crepitus.). No: Rales, Rhonchi, Wheezing Cardiovascular: Normal Peripheral Pulses, Regular Rate, Rhythm, No Gallop, No Murmur, No Rub. No: No Edema Peripheral Pulses: 1+: Posterior Tibial (L) (Pulses are limited due to edema both lower extremities worse on the right side.), Posterior Tibial (R), Dorsalis Pedis (L), Dorsalis Pedis (R), 2+: Carotid (L), Carotid (R) GI/Abdominal: Normal Bowel Sounds, Soft, Non-Tender, No Organomegaly, No Mass, Pelvis Stable, Distended (Mildly distended.), Other (Previous open cholecystectomy.) (Male) Exam: No Hernia Back Exam: Normal Inspection, Full Range of Motion, Other (No abrasions contusions to the upper or lower thoracic lumbar spine. No tenderness elicited on palpation of the entire spine.). No: CVA Tenderness (L), CVA Tenderness (R) Extremities: Pedal Edema (4+ pitting edema right lower extremity. 3+ pitting edema left lower extremity), Other (He has no injuries to either upper extremity that I could identify. He has limited forward flexion and abduction of both shoulders due to rotator cuff disease. There is no apparent injury to his right lower extremity. On the left side he is having pain over the greater trochanteric process on the left hip. Some pain in his proximal left femur pain over the knee with an abrasion over the patella. There is a deformity of the distal tib-fib on the left side. Pulses are just barely palpable in the dorsalis pedis at the left foot.) Neurological: Alert, Oriented, CN II-XII Intact, Normal Cognition Psychiatric: Normal Affect, Normal Mood Skin Exam: Warm, Dry, Intact, Normal Color, No Rash Course - Vital Signs Last Recorded V/S: Last Vital Signs Temp 36.1 C 07/30/20 13:22 Pulse 75 07/30/20 13:22 Resp 20 07/30/20 13:22 BP 170/87 H 07/30/20 13:22 Pulse Ox 100 07/30/20 13:22 - Orders/Labs/Meds Orders: Active Orders 24 hr Category Date Time Status Peripheral IV Insertion Adult [OM.PC] Stat Oth 07/30/20 13:46 Ordered Meds: Medications Discontinued Medications Generic Name Dose Route Start Last Admin Trade Name Freq PRN Reason Stop Dose Admin Sodium Chloride 10 ml 07/30/20 13:46 Saline Flush FLUSH ASDIRECTED PRN Keep Vein Open - Radiology Interpretation Free Text/Narrative:: 84-year-old male presents to the ED for evaluation of a fall at home. He was going out to the garage and fell down 4 stairs landing on the bumper of his car with his left anterior lateral thorax. Complains of rib pain and ribs 8 9 and 10 on the left side. No abrasions or contusions to the chest wall edema noted no subcutaneous emphysema or crepitus on exam. Benign abdominal examination. Pain left greater trochanteric process of hip on the left side abrasion to the patella left side some pain in the proximal left femur. Obvious deformity of the distal tib-fib on the left side with associated 2+ edema in his limb. He has 4+ edema in the right lower extremity. Plan he will have x-rays of the pelvis, left femur, left tib-fib, left ankle. CT of the chest will be done without contrast as his bones are very osteopenic. At present he does not wish any analgesia. A saline lock will be started and tentatively I will order lab work depending on what fractures have occurred. - Re-Assessments/Exams Free Text/Narrative Re-Assessment/Exam: 07/30/20 15:03 CT scan of the chest done without contrast looking for rib injuries on the left side after fall at home. Left lung volume is decreased presumably due to previous surgery. Patient has in fact had a left lower lobe lobectomy for cancer. Diffuse coronary artery calcification is appreciated. Emphysematous changes are seen within both lungs. Very slight scarring is noted within the left lung base. There is a nodule being seen within the right upper lung measuring about 7.7 mm. Smaller nodule is noted within the right upper lung measuring about 2 mm or less. No pleural effusions are identified. Several old left-sided rib fractures are noted which are healed. Scattered degenerative changes noted within the spine no acute osseous abnormalities appreciated. X-rays of the pelvis show some osteopenia. There is degenerative changes in both hips without evidence of pelvic fracture or femoral head or neck fractures. X-rays of the left femur reveal marked degenerative change at the knee with [id number] particular medial aspect. No fractures are identified within the femur. X-rays of the left tib-fib also are within normal limits showing no fractures. X-rays of the left ankle also are negative for any bony injuries. Patient was advised of the negative findings of the x-rays. Patient has an abrasion to his left anterior knee and left distal tib-fib area that will have to be cleansed daily with soap and water and have topical antibiotic bacitracin applied daily until they heal up. 07/30/20 16:12 he has been wearing below-knee compression stockings but it is not seeming to help much with his severe dependent edema bilaterally. I will therefore place him on Lasix 20 mg once daily in the morning and he is to step on the scale on a daily basis and marked on his weight. Follow-up with his primary care practitioner within the next 12 days to see where his weights are and whether or not his renal function and potassium are normal. Departure - Departure Time of Disposition: 15:12 Disposition: Home, Self-Care 01 Condition: Fair Clinical Impression: Contusion of chest wall with intact skin, Contusion of left lower leg, initial encounter, Abrasion, left lower leg, initial encounter, Dependent edema Fall as cause of accidental injury at home as place of occurrence Qualifiers: Encounter type: initial encounter Qualified Code(s): W19.XXXA - Unspecified fall, initial encounter Abrasion, knee Qualifiers: Encounter type: initial encounter Laterality: left Qualified Code(s): S80.212A - Abrasion, left knee, initial encounter Contusion of chest wall Qualifiers: Encounter type: initial encounter Laterality: left Qualified Code(s): S20.212A - Contusion of left front wall of thorax, initial encounter - Discharge Information *PRESCRIPTION DRUG MONITORING PROGRAM REVIEWED*: Not Applicable *COPY OF PRESCRIPTION DRUG MONITORING REPORT IN PATIENT PERCY: Not Applicable Prescriptions: Furosemide [Lasix] 20 mg PO DAILY #30 tab Instructions: Contusion, [id number], Blunt Chest Trauma Referrals: Indira Flower MD [Primary Care Provider] - Forms: ED Department Discharge Additional Instructions: Evaluation in the emergency room today in regards to injuries sustained from a fall at home at about noon today. You fell down approximately 4 stairs and struck the bumper of your car with your left anterior chest wall. This is caused contusion or bruised ribs but no open wounds or broken bones on CT scan of the chest. Old rib fractures are identified on the left chest wall that of all healed. X-rays of the pelvis left hip left knee and left tibia and fibula and left ankle are all negative for any broken bones. You have significant low er extremity swelling or edema which causes the left leg to look deformed. Large bruise and swelling appreciated over the left lower rivas bone. Suggest using a cane to aid ambulation until better which will likely be about 2 weeks. Abrasions to the left knee and left lower leg are to be cleansed daily with soap and water and then topical antibiotic such as bacitracin or Polysporin to be applied to that area until they heal. Follow-up with personal care physician if any further problems occur. It is okay to take Tylenol for pain as needed. I am going to start you on Lasix or furosemide 20 mg once daily every morning to help reduce the significant swelling in both of your lower extremities which is up past her knees on both sides. Suggest stepping on the scale every morning and documenting your weight. Follow-up with your personal care physician in 12 days time as you may need an adjustment of your Lasix medication. Sepsis Event Note (ED) - Evaluation Sepsis Screening Result: No Definite Risk - Focused Exam Vital Signs: Vital Signs Temp Pulse Resp BP Pulse Ox 07/30/20 13:22 36.1 C 75 20 170/87 H 100 - My Orders Last 24 Hours: My Active Orders 07/30/20 13:46 Peripheral IV Insertion Adult [OM.PC] Stat - Assessment/Plan Last 24 Hours: My Active Orders 07/30/20 13:46 Peripheral IV Insertion Adult [OM.PC] Stat
--- NOTE | 2020-07-30 14:57 | CT ---
CT chest Technique: Multiple axial sections through the chest were obtained. Intravenous contrast was not utilized. Reconstructed coronal and sagittal images were also obtained. Comparison: Previous chest x-ray of 02/12/20. Findings: Left lung volume is decreased presumably due to previous surgery. Coronary artery calcification is noted. Emphysematous changes are seen within both lungs. Very slight scarring is noted within the left lung base. There is a nodule being seen within the right upper lung measuring about 7.7 mm. Smaller nodule is noted within the right upper lung measuring about 2 mm or less. No pleural effusions are seen. Several old left-sided rib fractures are noted which are healed. Scattered degenerative change is noted within the spine. No acute osseus abnormality is appreciated. Impression: 1. Previous surgery on the left side with reduction of left lung volume. 2. 7.7 mm nodule within the right upper chest. Small less than 2 mm nodule also noted within the right upper chest. Nodules are nonspecific regarding etiology. 3. Other findings as noted above which are felt to be nonacute. Diagnostic code #9
--- NOTE | 2020-07-30 15:36 | CR ---
Left ankle: 3 views left ankle were obtained. Comparison: No prior ankle study is available. Diffuse soft tissue swelling is noted which is most prominent laterally. Ankle mortise is symmetric. No acute fracture or subluxation is appreciated. Minimal plantar spur is noted. Several small soft tissue calcifications are seen anteriorly. Impression: 1. Soft tissue swelling. 2. No acute bony abnormality is appreciated. Diagnostic code #2
--- NOTE | 2020-07-30 15:36 | CR ---
Left femur: AP and lateral views of the left femur were obtained. Comparison: No prior femur study is available. Mild joint space narrowing is seen within the hip. Severe joint space narrowing is noted within the medial joint compartment of the knee. Vascular calcification is noted. Osteopenia is seen. No acute fracture or other bony abnormality is appreciated. Impression: 1. Degenerative change as noted above and osteopenia. 2. No acute bony abnormality is appreciated. Diagnostic code #2
--- NOTE | 2020-07-30 15:37 | CR ---
Pelvis: AP view of the pelvis was obtained. Comparison: No prior pelvis study is available. Mild joint space narrowing is seen within the left hip. Sacroiliac joints are normal. Scattered disc space narrowing and endplate spurring is noted within the spine. No discrete fracture or other bony abnormality is appreciated. Osteopenia is noted. Impression: 1. Osteopenia and degenerative change. 2. No acute abnormality is appreciated on AP pelvis study. Diagnostic code #2
--- NOTE | 2020-07-30 15:38 | CR ---
Left tibia and fibula: AP and lateral views of the left tibia and fibula were obtained. Comparison: No prior tibia or fibula study is available Severe medial joint space narrowing is noted within the left knee. Vascular calcification is noted. No acute fracture or other bony abnormality is seen. Soft tissue swelling is noted laterally. Osteopenia is present. Impression: 1. Soft tissue swelling. 2. Degenerative change as noted above. 3. No acute osseous abnormality is appreciated. Diagnostic code #2
== END 2020-07-30 15:32 | disposition home or self-care (01) ==
LOC: JD.ED 13:12
DX: S20.212A Contusion of left front wall of thorax, initial encounter (principal); S80.12XA Contusion of left lower leg, initial encounter; S80.212A Abrasion, left knee, initial encounter; I10 Essential (primary) hypertension; K21.9 Gastro-esophageal reflux disease without esophagitis; Z79.82 Long term (current) use of aspirin; Z79.899 Other long term (current) drug therapy; W10.9XXA Fall (on) (from) unspecified stairs and steps, initial encounter; Y92.009 Unspecified place in unspecified non-institutional (private) residence as the place of occurrence of the external cause
CPT/HCPCS: 71250; 71250-26; 72170; 72170-26; 73552-26-LT; 73552-LT; 73590-26-LT; 73590-LT; 73610-26-LT; 73610-LT; 99284; 99284-25

== ENCOUNTER 2021-07-30 15:08 | Emergency (ER) | payer MEDICARE, OTHER ==
[2021-07-30] MEDS ORDERED: Metoclopramide 10 MG/2 ML SDV IVPUSH ONE (15:36)
[2021-07-30] MEDS ORDERED: fentaNYL 100 MCG/2 ML SDV IVPUSH ONE (15:36)
[2021-07-30] MEDS ORDERED: Propofol 200 MG/20 ML SDV IVPUSH ONE ×2 (15:37→16:00)
[2021-07-30 15:39] VITALS: BP 156/70; PULSE 70
[2021-07-30] MEDS ORDERED: Sodium Chloride 0.9% 1,000 ML IV SCH (15:45)
[2021-07-30] MEDS ORDERED: Propofol 1,000 MG/100 ML SDV IVPUSH ONE (16:00)
== END 2021-07-30 18:10 | disposition home or self-care (01) ==
LOC: JD.ED 15:08
DX: S43.014A Anterior dislocation of right humerus, initial encounter (principal); I10 Essential (primary) hypertension; K21.9 Gastro-esophageal reflux disease without esophagitis; Z79.82 Long term (current) use of aspirin; Z79.899 Other long term (current) drug therapy; W01.0XXA Fall on same level from slipping, tripping and stumbling without subsequent striking against object, initial encounter; Y92.000 Kitchen of unspecified non-institutional (private) residence as the place of occurrence of the external cause
CPT/HCPCS: 23650; 73030; 94762; 96374; 96375; 99283; J2704; J2765; J3010; J7030

== ENCOUNTER 2022-12-26 06:40 | Day surgery (SDC) | payer OTHER ==
[2022-12-26] MEDS ORDERED: Sodium Chloride 0.9% 10 ML Syringe FLUSH PRN (07:27)
[2022-12-26] MEDS ORDERED: fentaNYL 100 MCG/2 ML SDV ONE (07:28)
[2022-12-26] MEDS ORDERED: Propofol 200 MG/20 ML SDV ONE (07:28)
[2022-12-26] MEDS ORDERED: Lactated Ringers 1,000 ML IV SCH (07:30)
[2022-12-26] MEDS ORDERED: Sodium Chloride 0.9% 10 ML Syringe FLUSH SCH (09:00)
[2022-12-26 13:14] VITALS: BP 116/78; PULSE 74
== END 2022-12-26 10:25 | disposition home or self-care (01) ==
LOC: JD.SDS 06:40
PROVIDERS: ATTEND Surgery
DX: D12.2 Benign neoplasm of ascending colon (principal); K51.40 Inflammatory polyps of colon without complications; K62.1 Rectal polyp; K44.9 Diaphragmatic hernia without obstruction or gangrene; K22.2 Esophageal obstruction; K29.50 Unspecified chronic gastritis without bleeding; K31.7 Polyp of stomach and duodenum; K29.80 Duodenitis without bleeding; D64.9 Anemia, unspecified; Q43.8 Other specified congenital malformations of intestine; K64.9 Unspecified hemorrhoids; Z79.01 Long term (current) use of anticoagulants; K21.9 Gastro-esophageal reflux disease without esophagitis; I10 Essential (primary) hypertension; Z79.899 Other long term (current) drug therapy; Z88.8 Allergy status to other drugs, medicaments and biological substances; Z91.011 Allergy to milk products; Z87.891 Personal history of nicotine dependence
CPT/HCPCS: 43239; 45380; J2704; J3010; J7120; 00813; 99100

== ENCOUNTER 2023-04-14 18:27 | Emergency (ER) | payer OTHER ==
[2023-04-14 18:35] VITALS: BP 143/75; PULSE 94
== END 2023-04-14 20:22 | disposition home or self-care (01) ==
LOC: JD.ED 18:27
DX: S61.302A Unspecified open wound of right middle finger with damage to nail, initial encounter (principal); I10 Essential (primary) hypertension; K21.9 Gastro-esophageal reflux disease without esophagitis; Z88.8 Allergy status to other drugs, medicaments and biological substances; W45.8XXA Other foreign body or object entering through skin, initial encounter
CPT/HCPCS: 99283

== ENCOUNTER 2023-10-21 09:54 | Inpatient (IN) | payer OTHER ==
[2023-10-21] MEDS: Sodium Chloride 0.9% 10 ML Syringe FLUSH PRN ×2 (10:56→11:53)
[2023-10-21] MEDS: Pantoprazole 40 MG Vial IVPUSH ONE (10:57)
[2023-10-21 11:04] LABS: BASOPHILS PERCENT AUTO 0.3 % (0.0-1.0); HEMATOCRIT 23.9 % (42.0-52.0); IMMATURE GRAN ABSOLUTE AUTO 0.02 K/mm3 (0.00-0.05); IMMATURE GRAN PERCENT AUTO 0.5 % (0.0-0.4); LYMPHOCYTES ABSOLUTE AUTO 0.7 K/mm3 (1.0-4.8); LYMPHOCYTES PERCENT AUTO 20.1 % (24.0-44.0); MEAN CORPUSCULAR HEMOGLOBIN 25.9 pg (28.0-32.0); MEAN CORPUSCULAR VOLUME 83.6 fl (83.0-99.0); MEAN PLATELET VOLUME 9.3 fl (9.4-12.4); MONOCYTES ABSOLUTE AUTO 0.4 K/mm3 (0.0-0.8); MONOCYTES PERCENT AUTO 11.3 % (0.0-8.0); NEUTROPHILS ABSOLUTE AUTO 2.5 K/mm3 (1.8-7.7); NEUTROPHILS PERCENT AUTO 67.8 % (41.0-71.0); PLATELET COUNT,PLT 143 K/mm3 (150-400); RED BLOOD CELL COUNT 2.86 M/mm3 (4.52-5.90); WHITE BLOOD CELL COUNT,WBC 3.64 K/mm3 (3.9-11.3)
[2023-10-21 11:24] LABS: ALBUMIN 3.2 g/dl (3.4-5.0); ANION GAP 8.6 (5-15); BILIRUBIN TOTAL 0.2 mg/dL (0.2-1.0); BUN/CREATININE RATIO 21.4 (14-18); CALCIUM 8.7 mg/dL (8.5-10.1); CREATININE 1.4 mg/dL (0.7-1.3); EST CRCL DRUG DOSING (CG) 37.17 mL/min; POTASSIUM,K 3.6 mEq/L (3.5-5.1); PROTEIN TOTAL,TP 6.4 g/dl (6.4-8.2)
[2023-10-21 11:35] LABS: HEMOGLOBIN 7.4 gm/dl (14.0-18.0)
[2023-10-21] MEDS: Iopamidol 755 Mg/ML 100 ML Bottle IVPUSH ONE (11:53)
[2023-10-21] MEDS: Sodium Chloride 0.9% 100 ML IV SCH (11:53)
[2023-10-21] MEDS ORDERED: Furosemide 100 MG/10 ML SDV IVPUSH ONE (14:51)
[2023-10-21] MEDS: Furosemide 100 MG/10 ML SDV IVPUSH ONE (15:06)
[2023-10-21] MEDS ORDERED: Ondansetron 4 MG Tab.DIS PO PRN (15:52)
[2023-10-21] MEDS ORDERED: Acetaminophen 325 MG Tab PO PRN (15:52)
[2023-10-21] MEDS ORDERED: Docusate Sodium 100 MG Cap PO PRN (15:52)
[2023-10-21] MEDS ORDERED: Albuterol 0.083% 2.5 MG/3 ML Neb Soln NEB PRN (15:52)
[2023-10-21] MEDS ORDERED: Ondansetron 4 MG/2 ML SDV IV PRN (15:52)
[2023-10-21] MEDS: Pantoprazole 40 MG Vial IV SCH (20:21)
[2023-10-21] MEDS: Furosemide 40 MG/4 ML VIAL IVPUSH SCH (20:21)
[2023-10-22 04:54] LABS: EOSINOPHILS PERCENT AUTO 0.3 % (0.0-6.0); HEMATOCRIT 25.3 % (42.0-52.0); LYMPHOCYTES ABSOLUTE AUTO 0.8 K/mm3 (1.0-4.8); LYMPHOCYTES PERCENT AUTO 23.1 % (24.0-44.0); MEAN CORPUSCULAR HEMOGLOBIN 25.7 pg (28.0-32.0); MEAN CORPUSCULAR HGB CONC 31.6 g/dl (32.0-36.0); MEAN CORPUSCULAR VOLUME 81.4 fl (83.0-99.0); MEAN PLATELET VOLUME 10.1 fl (9.4-12.4); MONOCYTES ABSOLUTE AUTO 0.4 K/mm3 (0.0-0.8); MONOCYTES PERCENT AUTO 11.4 % (0.0-8.0); NEUTROPHILS ABSOLUTE AUTO 2.4 K/mm3 (1.8-7.7); NEUTROPHILS PERCENT AUTO 65.2 % (41.0-71.0); PLATELET COUNT,PLT 157 K/mm3 (150-400); RED BLOOD CELL COUNT 3.11 M/mm3 (4.52-5.90)
[2023-10-22 05:14] LABS: ANION GAP 10.2 (5-15); BUN/CREATININE RATIO 16.2 (14-18); CALCIUM 8.9 mg/dL (8.5-10.1); CREATININE 1.3 mg/dL (0.7-1.3); EST CRCL DRUG DOSING (CG) 40.03 mL/min; POTASSIUM,K 3.2 mEq/L (3.5-5.1)
[2023-10-22] MEDS: Potassium Chloride 20 MEQ Tab.ER PO ONE (06:55)
[2023-10-22 15:31] VITALS: BP 125/60; PULSE 73
== END 2023-10-22 14:02 | disposition home or self-care (01) | DRG 377 ==
LOC: JD.ED 09:54 → JD.MS 15:52
PROVIDERS: ADMIT Hospitalist; ATTEND Hospitalist
DX: R60.0 Localized edema (principal); K92.2 Gastrointestinal hemorrhage, unspecified; K92.1 Melena; I50.9 Heart failure, unspecified; I50.33 Acute on chronic diastolic (congestive) heart failure; D62 Acute posthemorrhagic anemia; H91.90 Unspecified hearing loss, unspecified ear; H54.7 Unspecified visual loss; K21.9 Gastro-esophageal reflux disease without esophagitis; I11.0 Hypertensive heart disease with heart failure; Z66 Do not resuscitate; D64.89 Other specified anemias; I48.91 Unspecified atrial fibrillation; N40.0 Benign prostatic hyperplasia without lower urinary tract symptoms; Z79.01 Long term (current) use of anticoagulants; Z79.82 Long term (current) use of aspirin; Z95.828 Presence of other vascular implants and grafts; Z91.011 Allergy to milk products; Z88.8 Allergy status to other drugs, medicaments and biological substances; Z79.899 Other long term (current) drug therapy; Z89.021 Acquired absence of right finger(s); Z98.890 Other specified postprocedural states; Z90.89 Acquired absence of other organs; Z87.891 Personal history of nicotine dependence
CPT/HCPCS: 36415; 71045; 74177; 80053; 83690; 83880; 84484; 85025; 86850; 86900; 86901; C9113; J1940; J3490 ×3; Q9967; 80048; 93307; 96374; 96375; 97110-GP; 97161-GP; 99285; 99285-25; A9270-GY